=== PATIENT | female | born 1960 | race Caucasian/White ===

== ENCOUNTER → 2018-10-12 | Outpatient (CLI) | payer OTHER ==
--- NOTE | 2018-10-12 12:37 | ECHOF ---
Referral Reason:I51.7 Cardiomegaly MEASUREMENTS -------- HEIGHT: 175.3 cm WEIGHT: 93.4 kg BP: RVIDd: 3.7 cm (< 3.3) IVSd: 1.2 cm (0.6 - 1.1) LVIDd: 4.8 cm (3.9 - 5.3) LVPWd: 1.3 cm (0.6 - 1.1) IVSs: 1.4 cm LVIDs: 3.9 cm LVPWs: 1.3 cm LA Diam: 4.1 cm (2.7 - 3.8) LAESV Index (A-L): 31.08 ml/m Ao Diam: 2.9 cm (2.0 - 3.7) AV Cusp: 1.9 cm (1.5 - 2.6) LA Diam: 4.0 cm (2.7 - 3.8) MV EXCURSION: 19.783 mm (> 18.000) MV EF SLOPE: 150 mm/s (70 - 150) EPSS: 0.5 cm MV E Rancho: 0.93 m/s MV DecT: 162 ms MV A Rancho: 0.65 m/s MV E/A Ratio: 1.42 RAP: 5.00 mmHg RVSP: 21.66 mmHg FINDINGS -------- Sinus rhythm. This was a technically adequate study. The left ventricular size is normal. There is mild concentric left ventricular hypertrophy. Overa ll left ventricular systolic function is normal with, an EF between 55 - 60 %. The right ventricle is mildly enlarged. The left atrium is mildly dilated. LA is midly dilated 29-33ml/m2. The right atrial size is normal. The aortic valve is trileaflet, and appears structurally normal. No aortic stenosis or regurgitation. Mild mitral annular calcification present. Mild mitral regurgitation is present. Mild tricuspid regurgitation present. There is no evidence of pulmonary hypertension. The right v entricular systolic pressure, as measured by Doppler, is 21.66mmHg. There is no pulmonic regurgitation present. The aortic root size is normal. There is no pericardial effusion. CONCLUSIONS -------- 1. The left ventricular size is normal. 2. There is mild concentric left ventricular hypertrophy. 3. Overall left ventricular systolic function is normal with, an EF between 55 - 60 %. 4. The right ventricle is mildly enlarged. 5. The left atrium is mildly dilated. 6. LA is midly dilated 29-33ml/m2. 7. The right atrial size is normal. 8. The aortic valve is trileaflet, and appears structurally normal. No aortic stenosis or regurgitati on. 9. Mild mitral annular calcification present. 10. Mild mitral regurgitation is present. 11. Mild tricuspid regurgitation present. 12. There is no evidence of pulmonary hypertension. 13. The right ventricular systolic pressure, as measured by Doppler, is 21.66mmHg. 14. There is no pulmonic regurgitation present. 15. The aortic root size is normal. 16. There is no pericardial effusion. SEWING MACHINE MECHANIC: Cecile Benitez RDCS
== END | disposition home or self-care (01) ==
LOC: RADECHMAIN 08:32
PROVIDERS: ATTEND Family Medicine
DX: I08.1 Rheumatic disorders of both mitral and tricuspid valves (principal)
CPT/HCPCS: 93306

== ENCOUNTER → 2019-03-01 | Outpatient (CLI) | payer OTHER ==
--- NOTE | 2019-03-01 13:13 | BD ---
EXAMINATION TYPE: Axial Bone Density DATE OF EXAM: 03/01/2019 COMPARISON: NONE CLINICAL HISTORY: 58 YR OLD FEMALE....ICD-10 CODE: E83.51 HYPOCALCEMIA Height: 66.5 Weight: 202 FRAX RISK QUESTIONS: Family History (Parent hip fracture): YES RISK FACTORS HISTORY OF: NOSE FX ....UNDER AGE 52 YRS OLD Family History of Osteoporosis: YES, MOTHER AND GRANDMOTHER, WITH HIP FX Postmenopausal woman: YES, AT AGE 50 YRS OLD Lost more than 2 inches in height since high school: YES Frequent falls: WEARS BRACE ON RT ANKLE, MEDICATIONS: Prednisone or other steroids: PREDNISONE, JUST FINISHING LAST PILL TO DAY Additional Medications: BP MEDS, REFLUX MEDS, CALCIUM, MAGNESIUM Additional History:HYPERTENSION, REFLUX, LOW CALCIUM AND MAGNESIUM IN BLOOD, OSTEOARTHRITIS EXAM MEASUREMENTS: Bone mineral densitometry was performed using the Singly System. Bone mineral density as measured about the Lumbar spine is: ----- L1-L4(G/cm2): 1.428 T Score Values are as follows: ----- L1: 2.2 ----- L2: 2.9 ----- L3: 1.3 ----- L4: 1.9 ----- L1-L4: 2.1 Bone mineral density FIRST DEXA SCAN.....BASELINE STUDY Bone mineral density about the R hip (g/cm2): 1.179 Bone mineral density about the L hip (g/cm2): 1.231 T Score values are as follows: -----R Neck: 0.3 -----L Neck: 0.3 -----R Total: 1.4 -----L Total: 1.8 Bone mineral density BASELINE STUDY FRAX%s: THERE IS A 10.4% CHANCE FOR A MAJOR AMANDA POROTIC FX AND 0.1% FOR HIP.....PROBABILITY OF F X IN 10 YRS TIME IMPRESSION: No evidence for osteoporosis or osteopenia. NOTE: T-SCORE=SD OF THE YOUNG ADULT MEAN.
== END ==
LOC: RADBDWWP 08:48
PROVIDERS: ATTEND Family Medicine
DX: E83.51 Hypocalcemia (principal)
CPT/HCPCS: 77080

== ENCOUNTER 2019-07-20 11:34 | Day surgery (SDC) | payer OTHER ==
[2019-07-19 08:40] VITALS: BMI 31.4
[~2019-07-20 11:34] MED LIST: LACTATED RINGERS 1,000 ML IV SCH; LIDOCAINE 1% 20 ML VIAL (10MG/ML) FOR IV START INTRADERMA PRN
[2019-07-20 11:58] VITALS: RESP 16; TEMP 98
[2019-07-20] MEDS ORDERED: PROPOFOL 10 MG/ML 20 ML VIAL IV ONE (12:36)
[2019-07-20] MEDS ORDERED: LIDOCAINE 1% INJ 10MG/ML (20 ML MDV) ONE (12:36)
[2019-07-20 13:43] VITALS: BP 151/70; PULSE 78
--- NOTE | 2019-07-20 13:53 | P.PCN ---
Date of Procedure: 07/20/19 Description of Procedure: BRIEF HISTORY: Patient is a 59-year-old pleasant female scheduled for an elective colonoscopy as a part of hematochezia and anemia. The patient reports last colonoscopy 18 years ago. PROCEDURE PERFORMED: Colonoscopy. PREOPERATIVE DIAGNOSIS: Hematochezia, anemia. ESTIMATED BLOOD LOSS: Minimal. IV sedation per Anesthesia. PROCEDURE: After informed consent was obtained, the patient, was brought into the endoscopy unit. IV sedation was administered by Anesthesia under continuous monitoring. Digital rectal examination was normal. Initially the Olympus CF-190 flexible video colonoscope was then inserted in the rectum, gradually advanced into the cecum without any difficulty. Careful examination was performed as the scope was gradually being withdrawn. Ileocecal valve and the appendiceal orifice were visualized and appeared normal. Prep was excellent. Mucosa of the cecum, ascending colon, transverse colon, descending colon, sigmoid colon, and rectum appeared grossly normal. There were numerous small and large diverticula throughout the colon as well as being fairly fixed likely secondary to multiple prior surgeries Retroflexion was performed in the rectum and no lesions were seen, mild internal hemorrhoids were also noted. The patient tolerated the procedure well. IMPRESSION: Moderate pandiverticulosis. No masses, polyps or other pathology to explain patient's anemia. RECOMMENDATIONS: Findings of this examination were discussed with the patient and her . Okay to resume high-fiber diet. Okay to resume medications. Repeat colonoscopy in 10 years for screening.
== END 2019-07-20 14:03 | disposition home or self-care (01) ==
LOC: ORWHC2ENDO 11:34
PROVIDERS: ATTEND Internal Medicine
DX: K57.30 Diverticulosis of large intestine without perforation or abscess without bleeding (principal); K64.8 Other hemorrhoids; K21.9 Gastro-esophageal reflux disease without esophagitis; D64.9 Anemia, unspecified; I10 Essential (primary) hypertension; Z90.710 Acquired absence of both cervix and uterus; Z79.899 Other long term (current) drug therapy; Z91.030 Bee allergy status
CPT/HCPCS: 45378; J2001; J2704

== ENCOUNTER 2019-08-26 09:38 | Day surgery (SDC) | payer OTHER ==
[~2019-08-26 09:38] MED LIST changes: +DEXAMETHASONE SOD PHOSPHATE 10 MG/ML 1 ML VIAL IV ONE; -LACTATED RINGERS 1,000 ML IV SCH; -LIDOCAINE 1% 20 ML VIAL (10MG/ML) FOR IV START INTRADERMA PRN; +MIDAZOLAM 2 MG/2 ML VIAL IV PRN; +ONDANSETRON 4 MG/2 ML VIAL IVP ONE
[2019-08-26] MEDS ORDERED: LIDOCAINE 1% 20 ML VIAL (10MG/ML) FOR IV START INTRADERMA ONE (10:45)
[2019-08-26] MEDS: LACTATED RINGERS 1,000 ML IV SCH ×2 (10:45→17:11)
[2019-08-26] MEDS ORDERED: MIDAZOLAM 2 MG/2 ML VIAL IV ONE (11:23)
[2019-08-26] MEDS ORDERED: HYDROmorphone (PF) 1 MG/ML ONE (12:44)
[2019-08-26] MEDS ORDERED: MIDAZOLAM 2 MG/2 ML VIAL ONE (12:44)
[2019-08-26] MEDS ORDERED: KETAMINE 10 MG/ML 20 ML VIAL ONE (12:44)
[2019-08-26] MEDS ORDERED: LIDOCAINE 1% INJ 10MG/ML (20 ML MDV) ONE (12:44)
[2019-08-26] MEDS ORDERED: SUCCINYLCHOLINE CHLORIDE 100 MG/5 ML SYR IV ONE (12:44)
[2019-08-26] MEDS ORDERED: PROPOFOL 10 MG/ML 20 ML VIAL IV ONE (12:44)
[2019-08-26] MEDS ORDERED: ROPIVACAINE 5 MG/ML 30 ML VIAL ONE (12:44)
[2019-08-26] MEDS ORDERED: DEXAMETHASONE SOD PHOSPHATE 4 MG/ML 1 ML VIAL ONE (12:44)
[2019-08-26] MEDS ORDERED: ePHEDrine SULFATE/0.9% NACL/PF 50 MG/5 ML SYRINGE IV ONE (12:44)
[2019-08-26] MEDS ORDERED: fentaNYL (PF) 50 MCG/ML 2 ML AMP ONE (12:44)
[2019-08-26] MEDS ORDERED: LACTATED RINGERS 1,000 ML IV ONE (13:56)
[2019-08-26] MEDS ORDERED: hydrOXYzine PAMOATE 25 MG CAP PO PRN (16:01)
[2019-08-26] MEDS ORDERED: SENNOSIDES-DOCUSATE SODIUM 1 EACH TAB PO PRN (16:01)
[2019-08-26] MEDS ORDERED: HYDROcodone/APAP 5-325MG 1 EACH TAB PO PRN ×2 (16:01)
[2019-08-26] MEDS ORDERED: ONDANSETRON 4 MG/2 ML VIAL IVP PRN (16:01)
[2019-08-26] MEDS ORDERED: HYDROmorphone 0.5 MG/0.5 ML SYRINGE IVP PRN ×2 (16:01)
--- NOTE | 2019-08-26 16:01 | P.OP ---
Date of Procedure: 08/26/19 Preoperative Diagnosis: 1. 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 Right posterior tibial tendinitis 3. Right Achilles tendon contracture Postoperative Diagnosis: Same Procedure(s) Performed: 1. Right subtalar arthrodesis 2. Right talonavicular arthrodesis 3. Right percutaneous tendo Achilles lengthening 4. Right posterior tibial tendon debridement 5. Application of short leg splint by physician, right leg Anesthesia: PATRICIA, regional Surgeon: Mike Walter Organization Development Consultant #1: Max Snyder Estimated Blood Loss (ml): 25 IV fluids (ml): 1,200 Pathology: none sent Condition: stable Disposition: PACU Indications for Procedure: The patient is a very pleasant 59-year-old female with long-standing history of problems with her right foot. She previously underwent some type of debridement procedure on her right posterior tibial tendon by an outside physician. She had continued pain and worsening deformity of her foot. She came to discuss treatment with me in the office. She failed a long course of nonsurgical treatment with activity modification, orthotics, bracing, and anti- inflammatories. Worsening pain is refractory to nonsurgical treatment and requested Aliciarich. Her x-rays showed collapse of longitudinal arch and greater than 40% uncoverage of the talar head. She had severe tenderness and weakness with posterior tibial tendon function. We discussed different surgical options including joint sparing procedures and fusions. My recommendation was to perform a double arthrodesis both to correct her deformity and have the lowest rate of recurrence. We discussed potential risks and complications including but not limited to risk of anesthesia, superficial infection, deep infection, delayed wound healing, superficial wound necrosis, nonunion of the fusion sites, malunion the fusion sites, symptomatically hardware, overcorrection of the deformity, under correction of the deformity, recurrence, DVT, PE, other medical complications, need for further surgery, possibility of revision surgery, generalized to satisfaction with her surgical outcome, and possibly loss of life or limb. Patient voiced understanding these potential complications and provided her verbal and written consent to go forward with surgery. Description of Procedure: The patient is a benefit. A Carbajal and the correct right leg was marked with my initials. I reviewed the consent form with the patient and her . All their questions were answered. The patient was given a block by anesthesia. She was then brought back to the operating room. She was positioned on the OR table where general anesthetic and preoperative antibiotics were given. A tourniquet was applied proximal aspect of the right leg. The right leg was then prepped and draped in the standard sterile fashion. Prior to starting surgery timeout was performed identifying the correct patient operative extremity and procedure. The patient's leg was then elevated, exsanguinated with an Esmarch bandage, and the tourniquet was inflated to 250 mmHg. I began by performing a percutaneous tendo Achilles lengthening. Stab incisions were made a 2 cm increments starting 2 cm proximal to the posterior tuberosity of the calcaneus. 3 stab incisions were made. The medial 50% of the Achilles tendon was released through the distal and proximal incisions in the lateral 50% of the Achilles tendon was released in the middle incision. A gentle dorsiflexion was applied to the ankle there is a palpable and audible pop as the Achilles lengthening. It remained intact. Attention was then turned to the subtalar joint. A longitudinal incision was made starting at the tip of the lateral malleolus and extending toward the fourth metatarsal. Dissection was carried down through copious tissue with tenotomy scissors. The peroneal tendon sheath was incised and the tendons were retracted plantarly. The posterior and middle facets of the subtalar joint were exposed. Articular cartilage was removed using a combination of osteotomes and curettes. The wound was thoroughly irrigated. All the articular cartilage is removed down to subchondral bone. A 2.5 mm drill bit was used to thoroughly fenestrate the exposed subchondral bone to facilitate fusion. Attention was then turned to the dorsal foot. A longitudinal incision was made centered over the talonavicular joint. Dissection was carried down carefully the 17th tissue with tenotomy scissors. The capsule the talonavicular joint was opened. A distractor was placed with pins and the talar head and navicular body. Articular cartilage was carefully removed from the talar head and the navicular. The wound was thoroughly irrigated removing all loose pieces of cartilage. The exposed bone of the talar head and navicular were thoroughly fenestrated with a 2.0 mm drill bit. The subtalar joint was then reduced and K wires were placed in the plantar aspect of the heel, across the subtalar joint, and into the talar body. Partially threaded 7.0 mm screws were placed generating excellent compression across the posterior and middle facets of the subtalar joint. The talonavicular joint was then reduced and a guidewire was placed through the navicular tuberosity up into the talar body. A partially threaded cannulated 5.5 mm screw was placed. A second partially threaded cannulated 40 screw was placed across lateral aspect of the joint. Final fluoroscopic images were taken including an AP view of the foot which showed intact Annette's line and coverage of the talar head, and mortise view of the ankle which showed both subtalar screws within the talus and no violation of the ankle joint, and axial heel view which showed both subtalar screws completely within the calcaneus, and a lateral of the foot which showed adequate compression across the subtalar and talonavicular joints and episcopalian of Annette's line. At this point the scar over the posterior medial ankle was incised. Dissection was carried down to the posterior tibial tendon. There were multiple nonabsorbable sutures consistent with prior attempts at repair. The tendon was markedly thickened and degenerative appearing with "crabmeat" appearing tissue throughout the substance of the tendon. Since both the subtalar and talonavicular joints were secured the degenerative portion of the tendon was sharply debrided with a scalpel. All wounds were thoroughly irrigated and closed in layers. Sterile dressing consisting of Betadine soaked Adaptic, 4 x 4, and web rolls applied. The patient was then placed into a well-padded bulky Bowamn splint with the ankle in neutral. The patient was awoken from her anesthetic, transferred to a gurney, and brought to recovery having procedure well. Max chuy PAC was required as a skilled employment assistant for patient positioning, exposure, retraction, closure of wounds and application of splint. Plan: The patient is going to be admitted overnight for pain control, IV antibiotics, and internal medicine consultation. She was to remain strictly nonweightbearing on her operative extremity. She is to ice and elevate her leg. She'll be treated with Lovenox for DVT prophylaxis while in-house and can be discharged home on aspirin.
[2019-08-26] MEDS: HYDROmorphone 0.5 MG/0.5 ML SYRINGE IVP PRN ×2 (16:05→16:12)
[2019-08-26] MEDS ORDERED: NALOXONE 0.4 MG/ML 1 ML VIAL IV PRN (16:09)
[2019-08-26] MEDS ORDERED: diphenhydrAMINE 50 MG/ML 1 ML VIAL IVP ONE (16:20)
--- NOTE | 2019-08-26 16:31 | FL ---
Fluoroscopy History: OSTEOARTHRITIS FOOT AND ANKLE 4 MIN 59 SEC FL
[2019-08-26 17:09] VITALS: BMI 31.3
--- NOTE | 2019-08-26 17:52 | XR ---
EXAMINATION TYPE: XR ankle limited RT DATE OF EXAM: 08/26/2019 CLINICAL HISTORY: Fusion surgery TECHNIQUE: 6 fluoroscopic images of the right ankle COMPARISON: None. FINDINGS: A series of fluoroscopic images show placement of 4 screws fusing the subtalar joint and th e talonavicular joint in anatomic position. IMPRESSION: Hindfoot fusion surgery. No complicating process seen. There is total recorded fluoroscopy time of 4 minutes and 59 seconds.
[2019-08-26] MEDS: HYDROmorphone 1 MG/ML 1 ML SYRINGE IVP PRN ×2 (18:16→21:29)
[2019-08-26] MEDS ORDERED: NON FORMULARY DRUG (Potassium [Potassium] 99 MG) PO SCH (18:30)
[2019-08-26 18:37] LABS: Basophils % (A) 0 %; Eosinophils % (A) 0 %; HCT 35.3 % (34.0-46.0); HGB 11.7 gm/dL (11.4-16.0); Lymphocytes # (A) 0.3 k/uL (1.0-4.8); Lymphocytes % (A) 4 %; MCH 34.7 pg (25.0-35.0); MCHC 33.1 g/dL (31.0-37.0); MCV 104.7 fL (80.0-100.0); Macrocytosis Slight; Mean Platelet Volume 6.2; Monocytes # (A) 0.1 k/uL (0-1.0); Monocytes % (A) 1 %; Neutrophils # (A) 7.3 k/uL (1.3-7.7); Neutrophils % (A) 94 %; Platelet Count 130 k/uL (150-450); RBC 3.37 m/uL (3.80-5.40); WBC 7.8 k/uL (3.8-10.6)
[2019-08-26] MEDS: LOSARTAN 50 MG TAB PO SCH (21:27)
[2019-08-26] MEDS: PANTOPRAZOLE 40 MG TABLET PO SCH (21:28)
[2019-08-26] MEDS: MAGNESIUM OXIDE 400 MG TAB PO SCH (21:28)
[2019-08-26] MEDS: CALCIUM CARBONATE 500 MG CHEWABLE PO SCH (21:29)
--- NOTE | 2019-08-26 22:52 | CONS ---
CONSULTATION CHIEF COMPLAINT: Arthritis of the right foot. HISTORY OF PRESENT ILLNESS: This 59-year-old white female is admitted for an elective surgical intervention for her arthritis in the right foot. She has been fairly healthy with mild hypertension and GERD. REVIEW OF SYSTEMS: She has had no difficulty with headaches, CVAs, neurologic problems, etc. She is having a lot of irritation in the left eye right now and feels like she has a foreign body in the right eye which she felt when she was coming out of recovery. She has no diplopia. She has no blurred vision. She has had no chest pain, shortness of breath, cough, heart disease, orthopnea, PND, chest pain, palpitations, rheumatic fever, abdominal pain, nausea, vomiting, hematemesis, melena, hematochezia, jaundice, hepatitis, cirrhosis, hematuria frequency, urgency, arthralgias, diabetes, etc. Past medical history, family history and personal and social histories are essentially otherwise unremarkable. ALLERGIES: None. MEDICATIONS INCLUDE: Vitamin D, calcium, losartan 100 mg once a day, magnesium oxide 500 mg twice a day, omeprazole 20 mg once a day and potassium 99 mg once a day. PHYSICAL EXAM: Her blood pressure is 153/67, pulse 85, respirations 12, and she is afebrile. GENERAL: She appeared to be well developed, well nourished, no acute distress. Skin color is normal. Skin is warm, dry. Lymph nodes not enlarged. Head, ears, eyes, nose, mouth, and throat were normal. Neck veins not distended. Chest is clear. Cardiac exam demonstrated normal sinus rhythm with a very faint grade 1/6 systolic murmur heard at the left lower sternal border. There is no S3 and no S4. Abdomen is soft, nontender. Extremities are normal except for the dressing on the right foot and lower leg. Neurologically, she is intact. She did have some irritation of the conjunctivae in the left eye with slight ecchymosis. IMPRESSION: 1. Osteoarthritis of the right foot. 2. Mild essential hypertension. 3. Inconsequential cardiac murmur. 4. Irritation in the left eye and possible foreign body. RECOMMENDATIONS: None at this time. I will ask Ophthalmology to see her if the eye continues to bother her. MMODL / IJN: [id number] /
[2019-08-27] MEDS: LACTATED RINGERS 1,000 ML IV SCH ×2 (05:56→05:57)
[2019-08-27 06:31] VITALS: RESP 12
--- NOTE | 2019-08-27 07:36 | P.ANPRN ---
Procedure Note - Anesthesia - Nerve Block Performed Right Popliteal Single Time Out Performed: Yes Date of Procedure: 08/26/19 Procedure Start Time: 11:24 Procedure Stop Time: :29 Location of Patient Procedure: PACU Indication: Acute Post-Operative Pain, Requested by Surgeon Sedation Type: Sedate with meaningful contact maintained Preparation: Sterile Prep Position: Supine Needle Types: Pajunk Needle Gauge: 21 Ultrasound used to visualize needle placement: Yes Ultrasound used to observe medication spread: Yes Blood Aspirated: No Pain Paresthesia on Injection Noted: No Resistance on Injection: Normal Image Stored and Saved: Yes Events: Uneventful and Well Tolerated (ropi .5% 30 cc plus dexamethasone 4mg)
[2019-08-27] MEDS: PANTOPRAZOLE 40 MG TABLET PO SCH (07:46)
[2019-08-27] MEDS: LOSARTAN 50 MG TAB PO SCH (07:46)
[2019-08-27] MEDS: CALCIUM CARBONATE 500 MG CHEWABLE PO SCH (07:47)
[2019-08-27] MEDS: MAGNESIUM OXIDE 400 MG TAB PO SCH (07:47)
[2019-08-27] MEDS ORDERED: ENOXAPARIN 40 MG/0.4 ML SYRINGE SQ SCH (09:00)
[2019-08-27] MEDS ORDERED: MULTIVITAMINS, THERA 1 EACH TAB PO SCH (12:00)
[2019-08-27] MEDS ORDERED: HYDROcodone/APAP 7.5-325MG 1 EACH TAB PO PRN (13:14)
--- NOTE | 2019-08-27 13:22 | P.DS ---
Providers Expected date of discharge: 08/27/19 Attending physician: Mike Walter Consults: 08/26/19 16:08 Consult Physician Routine Consulting Provider: Conrado Beal Consult Reason/Comments: Medical management Do you want consulting provider notified?: Yes Primary care physician: Stated None Hospital Course: This is a 59-year-old female who is admitted to [facility] following elective surgery on 08/26/19. The patient has had long-standing issues with her right foot. She was followed in the office by Dr. Walter for adult acquired flatfoot deformity, and after exhausting nonsurgical treatment, the patient requested surgery. The patient underwent a right subtalar joint arthrodesis, talonavicular joint arthrodesis, percutaneous tendo Achilles lengthening, posterior tibial tendon debridement on 08/26/[address] Walter. The procedure was performed without complication or sequelae. The patient is doing fairly well postoperatively. Vital signs and labs are stable on postoperative day #1. Patient was examined bedside today. Patient states her pain is currently well controlled. She states she is feeling well this morning. She tolerated her breakfast well. She has been up to the bathroom with the use of a knee scooter, with minimal issues transferring. She has been remaining nonweightbearing on the operative leg. She states she would like to return home on discharge, she states she will receive help from her . She denies chest pain, shortness of breath, nausea, vomiting, fevers, chills. She denies any new complaints today. Vital signs stable. On examination, the patient is sitting up in bed in no apparent distress. She is alert and oriented 3. On inspection of the right lower extremity, there is a bulky Bowman splint in place. The splint is clean, dry, and intact. There is a small amount of blood on the medial aspect of the splint. The right toes are warm and well perfused with brisk capillary refill. Motor and sensory function are intact with the right foot. Vital signs stable. Patient is discharged home in good condition. Patient will follow-up with Dr. Walter in the office in 2 weeks. Please see med rec for accurate list of discharge medication Patient Condition at Discharge: Fair Plan - Discharge Summary Discharge Rx Participant: Yes New Discharge Prescriptions: New Aspirin 325 mg PO DAILY #14 tab Docusate [Colace] 100 mg PO BID #60 capsule Hydrocodone/Acetaminophen [Wilson 5-325] 1 tab PO Q4-6H PRN #40 tab PRN Reason: Pain Ergocalciferol [Vitamin D2] 50,000 unit PO Q72H #14 cap Cholecalciferol (Vitamin D3) [Vitamin D3] 2,000 unit PO DAILY #30 capsule No Action Losartan Potassium [Cozaar] 100 mg PO QAM Multivitamins, Thera [Multivitamin (formulary)] 1 each PO DAILY@1200 #30 tab Ergocalciferol [Vitamin D2] 50,000 unit PO SA Potassium 99 mg PO DAILY Magnesium Oxide [Mag-Ox] 500 mg PO BID Calcium Carbonate [Tums] 500 mg PO DAILY Omeprazole Magnesium [PriLOSEC OTC] 20 mg PO DAILY Discharge Medication List Losartan Potassium [Cozaar] 100 mg PO QAM 01/22/19 [History] Multivitamins, Thera [Multivitamin (formulary)] 1 each PO DAILY@1200 #30 tab 01/23/19 [Rx] Calcium Carbonate [Tums] 500 mg PO DAILY 07/19/19 [History] Ergocalciferol [Vitamin D2] 50,000 unit PO SA 07/19/19 [History] Magnesium Oxide [Mag-Ox] 500 mg PO BID 07/19/19 [History] Omeprazole Magnesium [PriLOSEC OTC] 20 mg PO DAILY 07/19/19 [History] Potassium 99 mg PO DAILY 07/19/19 [History] Aspirin 325 mg PO DAILY #14 tab 08/27/19 [Rx] Cholecalciferol (Vitamin D3) [Vitamin D3] 2,000 unit PO DAILY #30 capsule 08/27/19 [Rx] Docusate [Colace] 100 mg PO BID #60 capsule 08/27/19 [Rx] Ergocalciferol [Vitamin D2] 50,000 unit PO Q72H #14 cap 08/27/19 [Rx] Hydrocodone/Acetaminophen [Wilson 5-325] 1 tab PO Q4-6H PRN #40 tab 08/27/19 [Rx] Follow up Appointment(s)/Referral(s): Mike Walter MD [Medical Doctor] - 2 Weeks Activity/Diet/Wound Care/Special Instructions: -Strict non-weight bearing on your operative leg. Do not remove your splint; Keep splint clean, dry, and intact -Use crutches, knee scooter, or a walker to ambulate after surgery. -Elevate and ice operative leg to help reduce swelling and control pain. -Take pain medications as prescribed. Take Colace as a stool softener. Take aspirin as prescribed for blood clot prevention. -Follow-up appointment with Dr. Walter in the office in 2 weeks. -Call the office with any questions or concerns, Discharge Disposition: HOME SELF-CARE
[2019-08-27 13:58] VITALS: BP 125/80; PULSE 84; TEMP 98.4
--- NOTE | 2019-08-27 20:11 | PN ---
PROGRESS NOTE CHIEF COMPLAINT: Arthritis of the right ankle and foot. HISTORY OF PRESENT ILLNESS: This lady has been stable during the night and will probably go home today. PHYSICAL EXAMINATION: Chest is clear. Cardiac exam is normal. Abdomen is soft, nontender. IMPRESSION: Status post procedure on right ankle and right foot for arthritis. PLAN: Probably home today. MMODL / IJN: [id number] /
== END 2019-08-27 16:48 | disposition home or self-care (01) ==
LOC: OR 09:38 → 4SSUR 16:48 → OR 08-27 16:48
PROVIDERS: ATTEND Orthopaedic Surgery
DX: M21.41 Flat foot [pes planus] (acquired), right foot (principal); M76.821 Posterior tibial tendinitis, right leg; M67.01 Short Achilles tendon (acquired), right ankle; I10 Essential (primary) hypertension; J44.9 Chronic obstructive pulmonary disease, unspecified; M19.071 Primary osteoarthritis, right ankle and foot; Z86.73 Personal history of transient ischemic attack (TIA), and cerebral infarction without residual deficits; Z90.710 Acquired absence of both cervix and uterus; Z87.891 Personal history of nicotine dependence; R51 Headache; Z79.899 Other long term (current) drug therapy; Z91.030 Bee allergy status
CPT/HCPCS: 97161; 64445; 76942; 85025; 82306; 73600; 28725; 28740; C1713; J2250; J1200; J1100 ×2; J0690 ×2; J2405; J2001; J1650; J3010; J1170 ×2; J2795; J0330; J2704

== ENCOUNTER → 2019-12-09 | Outpatient (CLI) | payer OTHER ==
[2019-12-09 12:21] LABS: HCT 38.2 % (34.0-46.0); HGB 13.1 gm/dL (11.4-16.0); MCHC 34.2 g/dL (31.0-37.0); MCV 96.5 fL (80.0-100.0); Platelet Count 206 k/uL (150-450); RBC 3.96 m/uL (3.80-5.40); RDW 13.6 % (11.5-15.5); WBC 7.7 k/uL (3.8-10.6)
[2019-12-09 18:37] LABS: African American GFR (CKD) 82.3 (60.0-200.0); Anion Gap 12.1 mmol/L (4.00-12.00); BUN/Creat Ratio 18.89 Ratio (12.00-20.00); Calcium 9.6 mg/dL (8.7-10.3); Carbon Dioxide 26.9 mmol/L (21.6-31.8); Magnesium 2.3 mg/dL (1.5-2.4); Potassium 4.1 mmol/L (3.5-5.5)
[2019-12-09 18:45] LABS: T4, Free (Free Thyroxine) 1.3 ng/dL (0.80-1.80)
== END | disposition home or self-care (01) ==
LOC: LABWHC1 11:09
PROVIDERS: ATTEND Nurse Practitioner
DX: I10 Essential (primary) hypertension (principal)
CPT/HCPCS: 36415; 80048; 82306; 83735; 84439; 84443; 85027

== ENCOUNTER → 2020-01-31 | Outpatient (CLI) | payer OTHER ==
[2020-01-31 15:41] LABS: African American GFR (CKD) 82.3 (60.0-200.0); Anion Gap 14.4 mmol/L (4.00-12.00); BUN/Creat Ratio 15.56 Ratio (12.00-20.00); Calcium 10.2 mg/dL (8.7-10.3); Carbon Dioxide 25.6 mmol/L (21.6-31.8); Magnesium 1.7 mg/dL (1.5-2.4); Potassium 4.6 mmol/L (3.5-5.5)
[2020-01-31 16:01] LABS: Folate, Serum 21.8 ng/mL
== END | disposition home or self-care (01) ==
LOC: LABWHC1 11:22
PROVIDERS: ATTEND Nurse Practitioner
DX: E44.0 Moderate protein-calorie malnutrition (principal); E61.2 Magnesium deficiency; R79.89 Other specified abnormal findings of blood chemistry
CPT/HCPCS: 36415; 80048; 82306; 82607; 82746; 83735

== ENCOUNTER → 2022-10-15 | Outpatient (CLI) | payer BC, OTHER ==
--- NOTE | 2022-10-15 14:55 | MM ---
Reason for Exam: Clinical finding. Indicated Problems: Pain of the left side (Global) for 3 Month(s) : pain lt breast off and on [address] loco. Patient History: Menarche at age 14. Patient has no children. Hysterectomy at age 51. Risk Values: Bina 5 year model risk: 1.6%. NCI Lifetime model risk: 8.1%. Tissue Density: There are scattered fibroglandular densities. Findings: Analyzed By CAD. No suspicious masses or worrisome cluster microcalcifications within either breast. No significant change in prior examination. Patient reports entire left breast pain. Overall Assessment: Incomplete: need additional imaging evaluation, BI-RAD 0 Management: Diagnostic Breast Ultrasound of the left breast. A clinical breast exam by your physician is recommended on an annual basis and results should be correlated with mammographic findings. This exam should not preclude additional follow-up of suspicious palpable abnormalities. Results were given to the patient verbally at the time of exam. Electronically signed and approved by: Harshil Ibrahim D.O.
--- NOTE | 2022-10-15 15:24 | USB ---
Reason for Exam: Clinical finding. Patient History: Menarche at age 14. Patient has no children. Hysterectomy at age 51. Risk Values: Bina 5 year model risk: 1.6%. NCI Lifetime model risk: 8.1%. Technique: Method: Whole Breast Handheld. Findings: The whole breast of the left breast, the axilla of the left breast and the retroareolar of the left breast were scanned. A complete US of all four quadrants of the breast and axilla, retro-areolar region were reviewed. There is a hypoechoic irregular mass that is demonstrated in the left breast at 2:00 8 cm from the nipple measuring 0.7 x 0.5 x 0.8 cm. No internal vascularity identified. There is posterior acoustic shadowing with angular margins and antiparallel orientation. No axillary adenopathy demonstrated. Overall Assessment: Suspicious, BI-RAD 4 Management: Ultrasound Core Biopsy of the left breast. A clinical breast exam by your physician is recommended on an annual basis and results should be correlated with mammographic findings. This exam should not preclude additional follow-up of suspicious palpable abnormalities. Results were given to the patient verbally at the time of exam. Electronically signed and approved by: Harshil Ibrahim D.O.
== END | disposition home or self-care (01) ==
LOC: RADMAMWWP 14:15
PROVIDERS: ATTEND Internal Medicine
DX: N64.4 Mastodynia (principal)
CPT/HCPCS: 77062; 77066

== ENCOUNTER → 2022-10-23 | Day surgery (SDC) | payer BC, OTHER ==
--- NOTE | 2022-10-23 12:26 | MM ---
Reason for Exam: Post Procedure Mammogram. Last screening mammogram was performed less than 1 month ago. Patient History: Menarche at age 14. Patient has no children. Hysterectomy at age 51. Risk Values: Bina 5 year model risk: 1.6%. NCI Lifetime model risk: 8.1%. Tissue Density: Left: There are scattered fibroglandular densities. Overall Assessment: Post procedure mammogram for marker placement Management: Post Mammogram for Angel Placement Electronically signed and approved by: Jorge Luis Vital DO
[2022-10-23 17:47] LABS: Basophils # (A) 0.04 X 10*3/uL (0.00-0.10); Basophils % (A) 0.6 %; Eosinophils # (A) 0.11 X 10*3/uL (0.04-0.35); Eosinophils % (A) 1.7 %; HGB 11.4 g/dL (12.0-15.0); Immature Grans, Automated 0.2 %; Lymphocytes # (A) 0.88 X 10*3/uL (0.90-5.00); Lymphocytes % (A) 13.5 %; MCH 33.1 pg (27.0-32.0); MCHC 31.7 g/dL (32.0-37.0); MCV 104.7 fL (80.0-97.0); Mean Platelet Volume 10.2 fL (9.5-12.2); Monocytes # (A) 0.39 X 10*3/uL (0.20-1.00); NRBC Per 100 WBC 0 /100 WBCS (0.0-0.0); Neutrophils # (A) 5.07 X 10*3/uL (1.80-7.70); Platelet Count 181 X 10*3/uL (140-440); RBC 3.44 X 10*6/uL (4.10-5.20)
[2022-10-23 20:40] LABS: ALT 17 U/L (8-44); AST 20 U/L (13-35); African American GFR (CKD) 53.1 (60.0-200.0); Albumin 4.2 g/dL (3.8-4.9); Albumin/Globulin Ratio 1.57 (1.60-3.17); Alkaline Phosphatase 100 U/L (41-126); Blood Urea Nitrogen 22.6 mg/dL (9.0-27.0); Calcium 9.2 mg/dL (8.7-10.3); Carbon Dioxide 24.9 mmol/L (20.0-27.5); Chloride 100 mmol/L (96-109); Chol/HDL Ratio 3.62 Ratio; Globulin 2.7 g/dL (1.6-3.3); Glucose 99 mg/dL (70-110); LDL Cholesterol,Calculated 139.2 mg/dL (0.0-131.0); Non-African American GFR(CKD) 45.8 (60.0-200.0); Potassium 4.9 mmol/L (3.5-5.5); Sodium 137 mmol/L (135-145); Total Protein 6.8 g/dL (6.2-8.2)
--- NOTE | 2022-10-30 10:20 | USB ---
Risk Values: Bina 5 year model risk: 1.6%. NCI Lifetime model risk: 8.1%. Prior Study Comparison: 10/15/2022 Bilateral MG 3D diag mammo w/cad [facility], [facility]. Pathology Description: Location: 2 o'clock. Cores: 3 Skin Nicks: 1 Gauge: 18 The procedure of ultrasound guided core biopsy was explained to the patient. Benefits, alternatives, and risks were discussed. An informed consent was then obtained. The patient was placed in supine positioning for imaging and for the procedure. The overlying skin was prepped and draped in usual sterile fashion. Lidocaine buffered with used as anesthetic into the skin and subcutaneous tissue up to area of concern in the left breast. A nancy was made with surgical scalpel. Under ultrasound guidance, a 12-gauge vacuum assisted biopsy gun device was used to obtain 3 core samples. Following this, a biopsy clip was left in lesion. The patient tolerated the procedure well without any immediate complication. The patient was kept in the radiology department for short stay after the procedure and then discharged home in stable condition. Postprocedure mammogram: The patient was transferred to mammography for physician ordered post procedure mammogram for clip placement verification. Impression: Successful, uncomplicated ultrasound guided core biopsy of area of concern in the left breast , full pathology results to follow. Pathology Results: Result: Malignant, Tubular carcinoma. LEFT BREAST, TWO O'CLOCK POSITION, ULTRASOUND GUIDED CORE BIOPSY: Invasive tubular carcinoma, Grade 1, with focal microcalcification (see Surgical Pathology Cancer Case Summary and Comment). Overall Assessment: Malignant Management: Surgical Consultation of the left breast. Electronically signed and approved by: Jorge Luis Vital DO
== END ==
LOC: RADUSWWP 10:18
PROVIDERS: ATTEND Surgery
DX: C50.412 Malignant neoplasm of upper-outer quadrant of left female breast (principal); Z90.710 Acquired absence of both cervix and uterus
CPT/HCPCS: 88305; 80061; 80053; 84443; 85025; 88342; 88341; 77065; 19083; A4648

== ENCOUNTER → 2022-10-31 | Outpatient (CLI) | payer BC, OTHER ==
[2022-10-31 11:11] VITALS: BP 146/87; PULSE 85; RESP 17; TEMP 98.9
--- NOTE | 2022-10-31 11:36 | P.GSHP ---
History of Present Illness H&P Date: 10/31/22 Chief Complaint: invasive tubular cancer left breast Dodie is a 62-year-old white female seen in consultation for Dr. Morrison regarding a left breast ultrasound core biopsy performed on 1220 822. The patient had been complaining of left breast pain. She therefore underwent a bilateral mammogram on [id number]. No lesions were seen of concern on the mammogram but secondary to the pain in the left breast and ultrasound was recommended. The ultrasound was performed on the same day. The ultrasound revealed a 0.7 x 0.8 cm irregular mass in the left breast at the 2 o'clock position 8 cm from the nipple. Core biopsy of this area was performed on 1220 822. Pathology revealed an invasive tubular carcinoma grade 1 this was ER/PA positive and HER-2 negative. The Ki-67 proliferative index was low. The patient does not feel any lumps masses or nodules of concern in either breast. She tolerated the biopsy without difficulty. She is not complaining of any nipple discharge or skin changes. She has not had any prior surgery on the breast. She has not had any recent trauma or infection in the breast. Caffeine: occasional nicotine: stopped 4 years ago; used to smoke .5 pack /week for 20 years chocolate: occasional hormones: none BCP: 1 month 30 years ago Family History: father: prostate cancer Hormonal History: menarche: 14 M1, tubal ; breast fed: no menopause: hysterectomy 11 years ago 1 ovary left; done for bleeding Surgical History: 3 knee surgeries hysterectomy 3 foot surgeries tubaligation nose fracture Medical History: neuroapathy unknown origin HTN Social History: Nicotine: Stopped 40 years ago Alcohol: beer twice a week 2 or 3 Marijuana: twice a year - Constitutional Constitutional: Reports sweats, Denies chills, Denies fever - EENT Eyes: denies blurred vision, denies pain Ears: deny: decreased hearing, tinnitus Ears, nose, mouth and throat: Denies headache, Denies sore throat - Breasts Breasts: bilateral: as per HPI - Cardiovascular Cardiovascular: Denies chest pain, Denies shortness of breath - Respiratory Respiratory: Denies cough, Denies 7 - Gastrointestinal Gastrointestinal: Denies abdominal pain, Denies diarrhea, Denies nausea, Denies vomiting - Genitourinary (Female) Genitourinary: Denies dysuria, Denies hematuria - Menstruation Menstruation: Reports post hysterectomy - Musculoskeletal Musculoskeletal: Denies myalgias - Integumentary Integumentary: Denies pruritus, Denies rash - Neurological Neurological: Reports as per HPI, Denies numbness, Denies weakness - Psychiatric Psychiatric: Denies anxiety, Denies depression - Endocrine Endocrine: Denies fatigue, Denies weight change - Hematologic/Lymphatic Comment: none - Allergic/Immunologic Allergic/Immunologic: Reports seasonal allergies Past Medical History Past Medical History: Cancer, GERD/Reflux, Hypertension, Osteoarthritis (OA) Additional Past Medical History / Comment(s): Varicose veins, anemia, hx skin cancer History of Any Multi-Drug Resistant Organisms: None Reported Past Surgical History: Hysterectomy, Orthopedic Surgery, Tonsillectomy Additional Past Surgical History / Comment(s): Bilateral knee arthroscopy(left X1, right X2), torn tendons rt foot, heel spur rt foot, surgery for tubal , nasal surgery for fx nose. Right foot surgery 2018 Past Anesthesia/Blood Transfusion Reactions: No Reported Reaction Additional Past Anesthesia/Blood Transfusion Reaction / Comment(s): . Past Psychological History: No Psychological Hx Reported Smoking Status: Former smoker Past Alcohol Use History: Occasional Additional Past Alcohol Use History / Comment(s): Quit smoking 09/2018, smoked for 25 yrs on and off, "light smoker." Past Drug Use History: None Reported - Past Family History Father Family Medical History: Cancer Brother(s) Family Medical History: AFIB Medications and Allergies Home Medications Medication Instructions Recorded Confirmed Type Losartan Potassium [Cozaar] 100 mg PO DAILY 01/22/19 10/31/22 History Potassium 99 mg PO DAILY 07/19/19 10/31/22 History Cholecalciferol [Vitamin D3 (25 50 mcg PO DAILY 03/15/22 10/31/22 History Mcg = 1000 Iu)] Magnesium Oxide [Moon] 500 mg PO BID 03/15/22 10/31/22 History Ondansetron [Zofran ODT] 4 mg PO Q8HR #12 tab 03/15/22 10/31/22 Rx Vitamin B-12 Complex 1 tab PO DAILY 03/15/22 10/31/22 History Dexlansoprazole [Dexilant] 60 mg PO DAILY PRN 10/31/22 10/31/22 History Allergies Allergy/AdvReac Type Severity Reaction Status Date / Time bee venom protein (honey bee) Allergy Severe Swelling Verified 10/31/22 11:07 Surgical - Exam Vital Signs Temp Pulse Resp BP Pulse Ox 98.9 F 85 17 146/87 99 10/31/22 11:08 10/31/22 11:08 10/31/22 11:08 10/31/22 11:08 10/31/22 11:08 BMI: 29.5 - General moderate distress - Eyes normal ocular movement - ENT no hearing loss - Neck trachea midline - Respiratory normal respiratory effort, clear to auscultation - Cardiovascular Rhythm: regular Heart Sounds: normal: S1 - Abdomen Abdomen: soft, non tender, no guarding, no rigid, no rebound - Integumentary normal turgor - Neurologic no disoriented, no combative - Musculoskeletal normal gait, normal posture - Psychiatric oriented to time, oriented to person, oriented to place, speech is normal, memory intact Breast Exam: BRA: 40DD Inspection: Asymmetry of the nipple location with the right nipple being a grade 2 ptosis of the left nipple being a grade 2/3 ptosis lower than that on the right side; the right breast appears to be slightly larger than the left breast, achymosis related to recent core biopsy Palpation: Right breast: Multi-positional exam fibrocystic changes no discrete dominant masses or nodules of concern Right axilla: No adenopathy of concern Left breast: Ecchymosis related to recent biopsy, multiple positional exam no dominant masses or nodules of concern Left axilla: No adenopathy of concern Results Pathology results reviewed, this is a grade 1 year. 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 Jenkins
== END ==
LOC: WWCWWP 10:51
PROVIDERS: ATTEND Surgery
DX: C50.912 Malignant neoplasm of unspecified site of left female breast (principal); I10 Essential (primary) hypertension; Z91.030 Bee allergy status; Z87.891 Personal history of nicotine dependence

== ENCOUNTER → 2023-01-09 | Outpatient (CLI) | payer BC ==
[2023-01-09 11:38] VITALS: BP 129/76; PULSE 61; RESP 17; TEMP 98.3
--- NOTE | 2023-01-09 12:02 | P.PN ---
Progress Note - Text Progress Note Date: 01/09/23 01-03-23 Dodie is a 62-year-old white female status post left breast lumpectomy and sentinel node biopsy on . 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 All margins were negative although the anterior margin was close. The patient had a sentinel node biopsy which was negative. She noticed some swelling in the left breast and axilla, she had this area aspirated last week. She did well until Friday when she noted tenderness and swelling when she awoke. She came in 12-31-22 for evaluation of this area. The breasts appeared to be doing well but the axillary incision was swollen and was drained for approximately 120 mL of seropurulent fluid. Cultures were sent and showed many PMNs and gram-positive cocci in clusters. She was started on Keflex and the area was opened aspirated and packed. She returns today for evaluation. She is doing well at this time. She is not complaining of any fever or chills. The area of redness has decreased. Cultures presumptive Staph. 01-09-23 The patient is doing well at this time. Her has been changing the packing in the axilla. She had cultures obtained which revealed staph aureus. This is sensitive to cefazolin. It is also sensitive to Bactrim. We are waiting to change her antibiotic to Bactrim. Physical exam: left axilla: Decreased erythema, packing changes and to change packing breast incision clean and dry seroma present today; patient does have some mild erythema of the lower medial portion of her breast Informed consent the area of the seroma was prepped using alcohol. An 18-gauge needle on a 20 mL syringe was used to aspirate the fluid. 220 and cc of straw- colored fluid was aspirated no evidence of infection. The area of the axillary incision was irrigated and the packing was changed. Plan: change antibiotic to Bactrim follow up next week Her is changing packing daily CC: Dr. Jenkins
== END ==
LOC: WWCWWP 11:23
PROVIDERS: ATTEND Surgery
DX: Z85.3 Personal history of malignant neoplasm of breast (principal); Z98.890 Other specified postprocedural states; Z91.02 Food additives allergy status; Z87.891 Personal history of nicotine dependence

== ENCOUNTER → 2023-01-16 | Outpatient (CLI) | payer BC ==
[2023-01-16 09:01] VITALS: BP 127/74; PULSE 114; RESP 18; TEMP 97.9
--- NOTE | 2023-01-16 09:35 | P.PN ---
Progress Note - Text Progress Note Date: 01/16/23 01-03-23 Dodie is a 62-year-old white female status post left breast lumpectomy and sentinel node biopsy on . 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 All margins were negative although the anterior margin was close. The patient had a sentinel node biopsy which was negative. She noticed some swelling in the left breast and axilla, she had this area aspirated last week. She did well until Friday when she noted tenderness and swelling when she awoke. She came in 12-31-22 for evaluation of this area. The breasts appeared to be doing well but the axillary incision was swollen and was drained for approximately 120 mL of seropurulent fluid. Cultures were sent and showed many PMNs and gram-positive cocci in clusters. She was started on Keflex and the area was opened aspirated and packed. She returns today for evaluation. She is doing well at this time. She is not complaining of any fever or chills. The area of redness has decreased. Cultures presumptive Staph. 01-09-23 The patient is doing well at this time. Her has been changing the packing in the axilla. She had cultures obtained which revealed staph aureus. This is sensitive to cefazolin. It is also sensitive to Bactrim. We are waiting to change her antibiotic to Bactrim. Physical exam: left axilla: Decreased erythema, packing changes and to change packing breast incision clean and dry seroma present today; patient does have some mild erythema of the lower medial portion of her breast Informed consent the area of the seroma was prepped using alcohol. An 18-gauge needle on a 20 mL syringe was used to aspirate the fluid. 220 and cc of straw- colored fluid was aspirated no evidence of infection. The area of the axillary incision was irrigated and the packing was changed. 01-16-23 The axillary packing is changed today the depth is still 2.5 cm but the area is very narrow now The area of the breast was examined. There is a small seroma present The area is prepped using alcohol. 90 mL of clear fluid was obtained. There is no evidence of infection Plan: Complete antibiotic follow up next week Her is changing packing daily to continue this The patient will follow up sooner any questions or concerns CC: Dr. Jenkins
== END ==
LOC: WWCWWP 08:51
PROVIDERS: ATTEND Surgery
DX: Z85.3 Personal history of malignant neoplasm of breast (principal); Z91.09 Other allergy status, other than to drugs and biological substances; Z87.891 Personal history of nicotine dependence

== ENCOUNTER → 2023-01-23 | Outpatient (CLI) | payer BC ==
[2023-01-23 09:23] VITALS: BP 130/80; PULSE 105; RESP 18; TEMP 97.8
--- NOTE | 2023-01-23 09:29 | P.PN ---
Progress Note - Text Progress Note Date: 01/23/23 01-03-23 Dodie is a 62-year-old white female status post left breast lumpectomy and sentinel node biopsy on . 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 All margins were negative although the anterior margin was close. The patient had a sentinel node biopsy which was negative. She noticed some swelling in the left breast and axilla, she had this area aspirated last week. She did well until Friday when she noted tenderness and swelling when she awoke. She came in 12-31-22 for evaluation of this area. The breasts appeared to be doing well but the axillary incision was swollen and was drained for approximately 120 mL of seropurulent fluid. Cultures were sent and showed many PMNs and gram-positive cocci in clusters. She was started on Keflex and the area was opened aspirated and packed. She returns today for evaluation. She is doing well at this time. She is not complaining of any fever or chills. The area of redness has decreased. Cultures presumptive Staph. 01-09-23 The patient is doing well at this time. Her has been changing the packing in the axilla. She had cultures obtained which revealed staph aureus. This is sensitive to cefazolin. It is also sensitive to Bactrim. We are waiting to change her antibiotic to Bactrim. Informed consent the area of the seroma was prepped using alcohol. An 18-gauge needle on a 20 mL syringe was used to aspirate the fluid. 220 and cc of straw- colored fluid was aspirated no evidence of infection. The area of the axillary incision was irrigated and the packing was changed. 01-23-23 Patient is doing well at this time. She is not able to pack the axilla any longer as it is completely healed. She has minimal fullness in the left breast. Incisions are clean and dry. Not complaining of any pain. She is complaining of any fever or chills. Physical exam: left axilla: Incision clean and dry. Appears to be completely healed, there is a small amount of serous drainage from a small pore-like opening no evidence of any infection breast incision clean and dry small seroma present today; erythema in the breast is completely resolved Informed consent the area of the seroma was prepped using alcohol. An 18-gauge needle on a 20 mL syringe was used to aspirate the fluid. 30 and cc of serosanguineous fluid was aspirated no evidence of infection. Plan: With medical oncology Appointment radiation oncology Follow-up in 1 month Follow-up sooner any questions or concerns CC: Dr. Jenkins Additional CC's: Ashvin Jenkins
== END ==
LOC: WWCWWP 08:51
PROVIDERS: ATTEND Surgery
DX: C50.412 Malignant neoplasm of upper-outer quadrant of left female breast (principal); Z91.030 Bee allergy status; Z87.891 Personal history of nicotine dependence

== ENCOUNTER → 2023-02-27 | Outpatient (CLI) | payer BC ==
[2023-02-27 08:48] VITALS: BP 129/70; PULSE 100; RESP 17; TEMP 98.1
--- NOTE | 2023-02-27 09:16 | P.PN ---
Subjective Progress Note Date: 02/27/23 Principal diagnosis: left breast stage IA invasive ductal cancer 01-03-23 Dodie is a 62-year-old white female status post left breast lumpectomy and sentinel node biopsy on . 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 All margins were negative although the anterior margin was close. The patient had a sentinel node biopsy which was negative. She noticed some swelling in the left breast and axilla, she had this area aspirated last week. She did well until Friday when she noted tenderness and swelling when she awoke. She came in 12-31-22 for evaluation of this area. The breasts appeared to be doing well but the axillary incision was swollen and was drained for approximately 120 mL of seropurulent fluid. Cultures were sent and showed many PMNs and gram-positive cocci in clusters. She was started on Keflex and the area was opened aspirated and packed. She returns today for evaluation. She is doing well at this time. She is not complaining of any fever or chills. The area of redness has decreased. Cultures presumptive Staph. 01-09-23 The patient is doing well at this time. Her has been changing the packing in the axilla. She had cultures obtained which revealed staph aureus. This is sensitive to cefazolin. It is also sensitive to Bactrim. We are waiting to change her antibiotic to Bactrim. Informed consent the area of the seroma was prepped using alcohol. An 18-gauge needle on a 20 mL syringe was used to aspirate the fluid. 220 and cc of straw- colored fluid was aspirated no evidence of infection. The area of the axillary incision was irrigated and the packing was changed. 01-23-23 Patient is doing well at this time. She is not able to pack the axilla any longer as it is completely healed. She has minimal fullness in the left breast. Incisions are clean and dry. Not complaining of any pain. She is complaining of any fever or chills. Physical exam: left axilla: Incision clean and dry. Appears to be completely healed, there is a small amount of serous drainage from a small pore-like opening no evidence of any infection breast incision clean and dry small seroma present today; erythema in the breast is completely resolved Informed consent the area of the seroma was prepped using alcohol. An 18-gauge needle on a 20 mL syringe was used to aspirate the fluid. 30 and cc of serosanguineous fluid was aspirated no evidence of infection. 02-27-23 Dodie is a 62-year-old white female status post left breast lumpectomy and sentinel node biopsy on . Postprocedure she developed an axillary seroma which was drained several times. She has subsequently been seen by medical onc ology, note from 02-21-23 reviewed. She will start letrazole after radiation therapy. Note radiation oncology reviewed 01-29-23. She started radiation therapy 02-09-23. She is tolerating this without difficulty. She has no complaints at this time. Objective - Vital Signs Vital signs: Vital Signs Temp 98.1 F 02/27/23 08:43 Pulse 100 02/27/23 08:43 Resp 17 02/27/23 08:43 BP 129/70 02/27/23 08:43 Pulse Ox 98 02/27/23 08:43 FiO2 Intake & Output 02/26/23 02/27/23 02/27/23 18:59 06:59 18:59 Weight 90.718 kg - Constitutional General appearance: Present: cooperative - EENT Eyes: Present: EOMI ENT: Present: hearing grossly normal - Neck Neck: Present: normal ROM - Respiratory Respiratory: bilateral: CTA - Cardiovascular Rhythm: regular Heart sounds: normal: S1, S2 - Gastrointestinal General gastrointestinal: Present: soft - Integumentary Integumentary: Present: normal turgor - Musculoskeletal Musculoskeletal: Present: gait normal - Psychiatric Psychiatric: Present: A&O x's 3, appropriate affect, intact judgment & insight - Additional findings Additional findings: Breast Exam: BRA: 3XL Inspection: There is erythema of the left breast related to radiation therapy she has been itching and there are some skin changes in the medial upper aspect of the left breast related to the itching with a rash Palpation: Right breast: No dominant masses or nodules of concern Right axilla: No adenopathy of concern Left breast: Postradiation and postsurgical changes with skin erythema and rash over the upper inner aspect of the left breast Left axilla: No evidence of seroma incision well-healed no adenopathy of concern Assessment and Plan Assessment: Impression: Patient status post left breast lumpectomy sentinel node biopsy for stage I invasive ductal carcinoma Patient seen by medical oncology will try to let resolved after the radiation is not going to do chemotherapy Patient no from radiation oncology reviewed patient has completed 3 weeks of radiation she will have 1 more week to complete Plan: I've recommended appointment with dermatology secondary to the rash and itching on the left breast She is at this time using steroid cream as well as Benadryl without relief Follow up here in one month Cc: Dr. Jenkins
== END ==
LOC: WWCWWP 08:35
PROVIDERS: ATTEND Surgery
DX: R92.8 Other abnormal and inconclusive findings on diagnostic imaging of breast (principal); C50.912 Malignant neoplasm of unspecified site of left female breast; N63.10 Unspecified lump in the right breast, unspecified quadrant; Z92.3 Personal history of irradiation; Z91.02 Food additives allergy status; Z87.891 Personal history of nicotine dependence

== ENCOUNTER → 2023-03-31 | Outpatient (CLI) | payer BC ==
--- NOTE | 2023-03-31 10:10 | BD ---
EXAMINATION TYPE: Axial Bone Density DATE OF EXAM: 03/31/2023 CLINICAL HISTORY: 62 years old Female. ICD-10 CODE: C50.412 CARCINOMA LT BREAST Height: 66 Weight: 201.0 FRAX RISK QUESTIONS: Alcohol (3 or more units per day): no Family History (Parent hip fracture): no Glucocorticoids (More than 3mos): no History of Fracture in Adulthood: Nasal Bones Secondary Osteoporosis: 1. Type 1 Diabetes: no 2. Hyperthyroidism: no 3. Menopause before 45: yes 4. Malnutrition: no 5. Chronic liver disease: no Rheumatoid Arthritis: no Current Tobacco Use: no RISK FACTORS HISTORY OF: Hip Fracture (Right/Left): no Spine Fracture: no History of Wrist Fracture: no Surgery to Spine/Hip(right/left)/Wrist (right/left): no Family History of Osteoporosis: Mother, Maternal Grandmother Active: no Diet low in dairy products/other sources of calcium: yes Postmenopausal woman: yes Take estrogen and/or progesterone medications: Hormone Danny past 2 weeks Lost more than 2 inches in height since high school: yes Frequent falls: yes Poor Health: no Hyperparathyroidism: no Adrenal Insufficiency: no MEDICATIONS: Prednisone or other steroids: no Thyroid Medications: no Osteoporosis Medications: no Additional Medications: BP Meds, Reflux Meds, Hormone Danny, Vit D, Calcium, Magnesium, Potasium, M ulti Vit Additional History: Breast Ca. October 2022 with radiation EXAM MEASUREMENTS: Bone mineral densitometry was performed using the [employer] System. Bone mineral density as measured about the Lumbar spine is: ----- L1-L4(G/cm2): 1.362 T Score Values are as follows: ----- L1: 2.0 ----- L2: 2.3 ----- L3: 1.2 ----- L4: 0.7 ----- L1-L4: 1.5 Z Score Values are as follows: ----- L1: 2.4 ----- L2: 2.7 ----- L3: 1.6 ----- L4: 1.0 ----- L1-L4: 1.9 Bone mineral density has: decreased -4.6 study of: 03/01/2019 Bone mineral density about the R hip (g/cm2): 1.124 Bone mineral density about the L hip (g/cm2): 1.169 T Score values are as follows: -----R Neck: 0.1 -----L Neck: 0.2 -----R Total: 0.9 -----L Total: 1.3 Z Score values are as follows: -----R Neck: 0.8 -----L Neck: 0.9 -----R Total: 1.3 -----L Total: 1.6 Bone mineral density has: decreased -4.9 since the study of 03/01/2019 FRAX%s: The graph provided illustrates a 5.8chance for a major osteoporotic fx and a 0.1chance for th e hips probability for fx in 10 years time. IMPRESSION: Normal (Values between +1 and -1 indicate normal bone mass). Consider repeating this study in 5 year s or sooner if there is some new clinical indication. NOTE: T-SCORE=SD OF THE YOUNG ADULT MEAN.
== END | disposition home or self-care (01) ==
LOC: RADBDWWP 09:31
PROVIDERS: ATTEND Internal Medicine Hematology & Oncology
DX: C50.412 Malignant neoplasm of upper-outer quadrant of left female breast (principal); Z78.0 Asymptomatic menopausal state
CPT/HCPCS: 77080

== ENCOUNTER → 2023-04-03 | Outpatient (CLI) | payer BC ==
[2023-04-03 09:47] VITALS: BP 158/87; PULSE 93; RESP 17; TEMP 98.7
--- NOTE | 2023-04-03 10:01 | P.PN ---
Subjective Progress Note Date: 04/03/23 Principal diagnosis: left breast stage IA invasive ductal cancer Dodie is 62 year old white female status post a left breast lumpectomy and SNB on 12-10-22. This was a G1 6mm dsinvasive ductal cancer, node(-), ER+, Pr+ Her2-. Post operatively she developed an axillary seroma which required drainage. She completed radiation therapy on 03-07-23. She is complaining of her left nipple feeling sore and at times being discolored. This just started 2 weeks ago after the radiation. She is taking letrazole and tolerating this without difficulty. The pain in her nipple started after she started the letrazole. Note Dr. Nichols 02-11-23 reviewed. Caffeine: occasional nicotine: stopped 4 years ago; used to smoke .5 pack /week for 20 years chocolate: occasional hormones: none BCP: 1 month 30 years ago Family History: father: prostate cancer Hormonal History: menarche: 14 M1, tubal ; breast fed: no menopause: hysterectomy 11 years ago 1 ovary left; done for bleeding Surgical History: 3 knee surgeries hysterectomy 3 foot surgeries tubaligation nose fracture Medical History: neuroapathy unknown origin HTN Social History: Nicotine: Stopped 40 years ago Alcohol: beer twice a week 2 or 3 Marijuana: twice a year - Constitutional Constitutional: Reports sweats, Denies chills, Denies fever - EENT Eyes: denies blurred vision, denies pain Ears: deny: decreased hearing, tinnitus Ears, nose, mouth and throat: Denies headache, Denies sore throat - Breasts Breasts: bilateral: as per HPI - Cardiovascular Cardiovascular: Denies chest pain, Denies shortness of breath - Respiratory Respiratory: Denies cough, Denies 7 - Gastrointestinal Gastrointestinal: Denies abdominal pain, Denies diarrhea, Denies nausea, Denies vomiting - Genitourinary (Female) Genitourinary: Denies dysuria, Denies hematuria - Menstruation Menstruation: Reports post hysterectomy - Musculoskeletal Musculoskeletal: Denies myalgias - Integumentary Integumentary: Denies pruritus, Denies rash - Neurological Neurological: Reports as per HPI, Denies numbness, Denies weakness - Psychiatric Psychiatric: Denies anxiety, Denies depression - Endocrine Endocrine: Denies fatigue, Denies weight change - Hematologic/Lymphatic Comment: none - Allergic/Immunologic Allergic/Immunologic: Reports seasonal allergies Past Medical History Past Medical History: Cancer, GERD/Reflux, Hypertension, Osteoarthritis (OA) Additional Past Medical History / Comment(s): Varicose veins, anemia, hx skin cancer History of Any Multi-Drug Resistant Organisms: None Reported Past Surgical History: Hysterectomy, Orthopedic Surgery, Tonsillectomy Additional Past Surgical History / Comment(s): Bilateral knee arthroscopy(left X1, right X2), torn tendons rt foot, heel spur rt foot, surgery for tubal , nasal surgery for fx nose. Right foot surgery 2019 Past Anesthesia/Blood Transfusion Reactions: No Reported Reaction Additional Past Anesthesia/Blood Transfusion Reaction / Comment(s): . Past Psychological History: No Psychological Hx Reported Smoking Status: Former smoker Past Alcohol Use History: Occasional Additional Past Alcohol Use History / Comment(s): Quit smoking 09/2018, smoked for 25 yrs on and off, "light smoker." Past Drug Use History: None Reported - Past Family History Father Family Medical History: Cancer Brother(s) Family Medical History: AFIB Medications and Allergies Home Medications Medication Instructions Recorded Confirmed Type Losartan Potassium [Cozaar] 100 mg PO DAILY 01/22/19 10/31/22 History Potassium 99 mg PO DAILY 07/19/19 10/31/22 History Cholecalciferol [Vitamin D3 (25 50 mcg PO DAILY 03/15/22 10/31/22 History Mcg = 1000 Iu)] Magnesium Oxide [Moon] 500 mg PO BID 03/15/22 10/31/22 History Ondansetron [Zofran ODT] 4 mg PO Q8HR #12 tab 03/15/22 10/31/22 Rx Vitamin B-12 Complex 1 tab PO DAILY 03/15/22 10/31/22 History Dexlansoprazole [Dexilant] 60 mg PO DAILY PRN 10/31/22 10/31/22 History Allergies Allergy/AdvReac Type Severity Reaction Status Date / Time bee venom protein (honey bee) Allergy Severe Swelling Verified 10/31/22 11:07 Objective - Vital Signs Vital signs: Vital Signs Temp 98.7 F 04/03/23 09:45 Pulse 93 04/03/23 09:45 Resp 17 04/03/23 09:45 BP 158/87 04/03/23 09:45 Pulse Ox 96 04/03/23 09:45 FiO2 Intake & Output 04/02/23 04/03/23 04/03/23 18:59 06:59 18:59 Weight 90.718 kg - Constitutional General appearance: Present: cooperative - EENT Eyes: Present: EOMI ENT: Present: hearing grossly normal - Neck Neck: Present: normal ROM - Respiratory Respiratory: bilateral: CTA - Cardiovascular Heart sounds: normal: S1, S2 - Musculoskeletal Musculoskeletal: Present: gait normal - Psychiatric Psychiatric: Present: A&O x's 3, appropriate affect, intact judgment & insight - Additional findings Additional findings: Breast Exam: BRA: 40DD Inspection: Postradiation surgical changes left breast, no evidence of inf ection Palpation: Right breast: Multi-positional exam fibrocystic changes no discrete dominant masses or nodules of concern Right axilla: No adenopathy of concern Left breast: multi-positional exam no dominant masses or nodules of concern, postradiation and surgical changes left breast, the area of the nipple areolar region is tender to palpation Left axilla: No adenopathy of concern, incision clean and dry and well-healed Assessment and Plan Assessment: Impression: Patient status post left breast lumpectomy sentinel node biopsy for stage I invasive ductal carcinoma surgery performed 12-10-22 Patient status post radiation therapy Patient presently on letrazole Tender left nipple areolar complex Plan: The tenderness started after the patient began letrazole she is going to discuss this with Dr. Nichols At this time no evidence of any infection left breast healing well Follow-up here in 4 months Cc: Dr. Jenkins
== END ==
LOC: WWCWWP 09:28
PROVIDERS: ATTEND Surgery
DX: Z90.12 Acquired absence of left breast and nipple (principal); Z85.9 Personal history of malignant neoplasm, unspecified; K21.9 Gastro-esophageal reflux disease without esophagitis; I10 Essential (primary) hypertension; M19.90 Unspecified osteoarthritis, unspecified site; Z98.890 Other specified postprocedural states; Z91.030 Bee allergy status; Z87.891 Personal history of nicotine dependence

== ENCOUNTER → 2023-05-27 | Outpatient (CLI) | payer BC ==
[2023-05-27 22:26] LABS: T4, Free (Free Thyroxine) 1.26 ng/dL (0.80-1.80)
== END | disposition home or self-care (01) ==
LOC: LABWHC1 12:31
PROVIDERS: ATTEND Internal Medicine Interventional Cardiology
DX: E03.9 Hypothyroidism, unspecified (principal)
CPT/HCPCS: 36415; 84439; 84443

== ENCOUNTER 2023-06-10 13:07 | Emergency (ER) | payer BC ==
--- NOTE | 2023-06-10 13:23 | ED ---
Skin/Abscess/FB HPI - General Source: patient Mode of arrival: ambulatory Limitations: no limitations <Hagerman,Sarita - Last Filed: 06/10/23 13:22> - General Source: RN notes reviewed, old records reviewed <Jorge Luis Quintanilla - Last Filed: 06/10/23 14:47> <Anshu Livingston - Last Filed: 06/10/23 16:52> - General Chief complaint: Skin/Abscess/Foreign Body Stated complaint: Left Breast Pain Time Seen by Provider: 06/10/23 13:23 - History of Present Illness Initial comments: 62-year-old female with left breast pain, symptoms have progressed over the past several days patient had contacted her breast surgeon who is currently out of town. No fever. Patient had breast cancer lumpectomy in November of this year. She had issues with recurrent infection. She had also undergone radiation and is currently not receiving any treatment. (Jorge Luis Quintanilla) - Related Data Home Medications Medication Instructions Recorded Confirmed Losartan Potassium [Cozaar] 100 mg PO QAM 01/22/19 04/03/23 Potassium 99 mg PO DAILY 07/19/19 04/03/23 Cholecalciferol [Vitamin D3 (25 50 mcg PO DAILY 03/15/22 04/03/23 Mcg = 1000 Iu)] Magnesium Oxide [Moon] 500 mg PO BID 03/15/22 04/03/23 Vitamin B-12 Complex 1 tab PO DAILY 03/15/22 04/03/23 Dexlansoprazole [Dexilant] 60 mg PO QAM 10/31/22 04/03/23 Ondansetron [Zofran ODT] 4 mg PO Q8HR PRN 11/26/22 04/03/23 Pramipexole [Mirapex] 0.25 mg PO HS 11/26/22 04/03/23 rOPINIRole HCL 0.25 mg PO DIRECTED PRN 11/26/22 04/03/23 Previous Rx's Medication Instructions Recorded Cephalexin [Keflex] 500 mg PO Q6HR 1 Days #20 cap 12/31/22 HYDROcodone/APAP 5-325MG [Vaiden 5] 1 - 2 each PO Q4H PRN #20 tab 12/31/22 Cephalexin [Keflex] 500 mg PO Q6HR 1 Days #20 cap 01/03/23 Sulfamethox-Tmp 800-160Mg [Bactrim 1 tab PO Q12HR #14 tab 01/09/23 DS 800-160 mg] Cephalexin [Keflex] 500 mg PO Q6HR 1 Days #20 cap 06/10/23 HYDROcodone/APAP 5-325MG [Vaiden 1 tab PO Q6HR PRN 3 Days #12 tab 06/10/23 5-325] Allergies Allergy/AdvReac Type Severity Reaction Status Date / Time bee venom protein (honey bee) Allergy Severe Swelling Verified 04/03/23 09:44 Review of Systems ROS Other: All systems not noted in ROS Statement are negative. <Sarita Hahn - Last Filed: 06/10/23 13:22> ROS Other: All systems not noted in ROS Statement are negative. <Jorge Luis Quintanilla - Last Filed: 06/10/23 14:47> ROS Other: All systems not noted in ROS Statement are negative. <Anshu Livingston - Last Filed: 06/10/23 16:52> ROS Statement: Those systems with pertinent positive or pertinent negative responses have been documented in the HPI. Past Medical History Past Medical History: Cancer, GERD/Reflux, Hypertension, Neurologic Disorder, Osteoarthritis (OA) Additional Past Medical History / Comment(s): Varicose veins, anemia, hx skin cancer, neuropathy in bilateral feet, Restless Leg Syndrome. History of Any Multi-Drug Resistant Organisms: None Reported Past Surgical History: Hysterectomy, Orthopedic Surgery, Tonsillectomy Additional Past Surgical History / Comment(s): Bilateral knee arthroscopy(left X1, right X2), surgery for torn tendons right foot, right heel spur surgery, right foot surgery surgery for tubal , nasal surgery, bilateral cataract surgery. Past Anesthesia/Blood Transfusion Reactions: No Reported Reaction Additional Past Anesthesia/Blood Transfusion Reaction / Comment(s): . Past Psychological History: No Psychological Hx Reported Smoking Status: Former smoker Past Alcohol Use History: Occasional Past Drug Use History: None Reported - Past Family History Father Family Medical History: Cancer Brother(s) Family Medical History: AFIB <Sarita Hahn - Last Filed: 06/10/23 13:22> General Exam Limitations: no limitations <Sarita Hahn - Last Filed: 06/10/23 13:22> General appearance: alert, in no apparent distress Head exam: Present: atraumatic, normocephalic Eye exam: Present: normal appearance, PERRL ENT exam: Present: normal exam Neck exam: Present: normal inspection. Absent: tenderness Respiratory exam: Present: normal lung sounds bilaterally. Absent: respiratory distress, wheezes Cardiovascular Exam: Present: regular rate, normal rhythm GI/Abdominal exam: Present: soft. Absent: distended, tenderness Extremities exam: Present: normal inspection Neurological exam: Present: alert, oriented X3 Psychiatric exam: Present: normal affect, normal mood Skin exam: Present: warm, dry, other (Left breast, tenderness to palpation, palpable mass versus abscess in the inferior lateral portion of the left breast) <Jorge Luis Quintanilla - Last Filed: 06/10/23 14:47> Course <Jorge Luis Quintanilla - Last Filed: 06/10/23 14:47> Vital Signs 06/10/23 06/10/23 13:19 16:01 Temperature 98.1 F 97.9 F Pulse Rate 93 67 Respiratory 20 16 Rate Blood Pressure 147/84 140/76 O2 Sat by Pulse 98 99 Oximetry - Reevaluation(s) Reevaluation #1: 06/10/23 1500 Awaiting ultrasound results, patient care signed out at shift change. (Jorge Luis Quintanilla) Medical Decision Making <Sarita Hahn - Last Filed: 06/10/23 13:22> <Anshu Livingston - Last Filed: 06/10/23 16:52> - Medical Decision Making Visual Physical Exam Vital signs reviewed General: Well-appearing, nontoxic, no acute distress. Head: Normocephalic, atraumatic Eyes: PERRLA, EOMI ENT: Airway patent Chest: Nonlabored breathing Skin: No visual rash, normal skin tone Neuro: Alert and oriented 3 Musculoskeletal: No gross abnormalities I performed with the Quicknote portion Sarita Hahn PARKING PATROLLER-c (Sarita Hahn) The patient was signed out to me from Dr. Quintanilla pending completion of the ultrasound as well as reevaluation. Was pt. sent in by a medical professional or institution (, PA, PARKING PATROLLER, urgent care, hospital, or penitentiary...) When possible be specific @ -No Did you speak to anyone other than the patient for history (EMS, parent, family, police, friend...)? What history was obtained from this source @ -No Did you review nursing and triage notes (agree or disagree)? Why? @ -I reviewed and agree with nursing and triage notes Were old charts reviewed (outside hosp., previous admission, EMS record, old EKG, old radiological studies, urgent care reports/EKG's, penitentiary records)? Report findings @ -No old charts were reviewed Differential Diagnosis (chest pain, altered mental status, abdominal pain women, abdominal pain men, vaginal bleeding, weakness, fever, dyspnea, syncope, headache, dizziness, GI bleed, back pain, seizure, CVA, palpatations, mental health)? @ -Breast abscess, breast cancer, cellulitis EKG interpreted by me (3pts min.). @ -None X-rays interpreted by me (1pt min.). @ -None done CT interpreted by me (1pt min.). @ -None done U/S interpreted by me (1pt. min.). @ -A breast ultrasound of the left breast was obtained and was interpreted by myself showing no evidence for ordered as a fluid collection or mass. There is streaky edema seen within the subcutaneous tissues nor organizing fluid collection. There is area of shadowing felt to represent postsurgical changes noted patient's scar. Radiologist recommended mammogram for further evaluation. What testing was considered but not performed or refused? (CT, X-rays, U/S, labs)? Why? @ -None What meds were considered but not given or refused? Why? @ -None Did you discuss the management of the patient with other professionals (professionals i.e. , PA, PARKING PATROLLER, lab, RT, psych nurse, social security benefits interviewer, ripening room hand, teacher, sustainability officer, welfare case worker)? Give summary @ -No Was smoking cessation discussed for >3mins.? @ -No Was critical care preformed (if so, how long)? @ -No Were there social determinants of health that impacted care today? How? (Homelessness, low income, unemployed, alcoholism, drug addiction, transportation, low edu. Level, literacy, decrease access to med. care, halfway, rehab)? @ -No Was there de-escalation of care discussed even if they declined (Discuss DNR or withdrawal of care, Hospice)? DNR status @ -No What co-morbidities impacted this encounter? (DM, HTN, Smoking, COPD, CAD, Cancer, CVA, ARF, Chemo, Hep., AIDS, mental health diagnosis, sleep apnea, morbid obesity)? @ -Previous breast cancer Was patient admitted / discharged? Hospital course, mention meds given and route, prescriptions, significant lab abnormalities, going to OR and other pertinent info. @ -The patient was seen and evaluated emergency department. The patient was initially seen by Dr. Quintanilla for complete HPI. I evaluated the patient is a sign out pending ultrasound. Ultrasound did show subcutaneous edema without any signs of abscess. I did reevaluate the patient and told of the results and she was relieved. The patient did have minor swelling to the left breast and had tenderness to palpation with minor warmth. The patient did have minor erythema as well. The patient be treated for cellulitis at this time and was given a dose of Keflex and Vaiden for pain control. The patient was given a prescription for Vaiden for pain as well as Keflex be taken at home. The patient was advised to follow-up with her breast surgeon for a mammogram and further evaluation. The patient was agreeable to this and all her questions were answered appropriate. The patient was discharged home in stable condition. Undiagnosed new problem with uncertain prognosis? @ -No Drug Therapy requiring intensive monitoring for toxicity (Heparin, Nitro, Insulin, Cardizem)? @ -No Were any procedures done? @ -No Diagnosis/symptom? @ -Left breast cellulitis, swelling Acute, or Chronic, or Acute on Chronic? @ -Acute Uncomplicated (without systemic symptoms) or Complicated (systemic symptoms)? @ -Uncomplicated Side effects of treatment? @ -No Exacerbation, Progression, or Severe Exacerbation? @ -No Poses a threat to life or bodily function? How? (Chest pain, [place], [place], pneumonia, PE, COPD, DKA, ARF, appy, cholecystitis, CVA, Diverticulitis, Homicidal, Suicidal, threat to staff... and all critical care pts) @ -No (Anshu Livingston) Disposition <Sarita Hahn - Last Filed: 06/10/23 13:22> <Jorge Luis Quintanilla - Last Filed: 06/10/23 14:47> Is patient prescribed a controlled substance at d/c from ED?: No Time of Disposition: 15:15 <Anshu Livingston - Last Filed: 06/10/23 16:52> Clinical Impression: Breast swelling, Cellulitis of breast Disposition: HOME SELF-CARE Condition: Stable Instructions (If sedation given, give patient instructions): Cellulitis (ED), Breast Mass (ED) Prescriptions: Cephalexin [Keflex] 500 mg PO Q6HR 1 Days #20 cap HYDROcodone/APAP 5-325MG [Vaiden 5-325] 1 tab PO Q6HR PRN 3 Days #12 tab PRN Reason: Pain Referrals: Ashvin Jenkins MD [Primary Care Provider] - 1-2 days Vanessa Leiva MD [STAFF PHYSICIAN] - 1-2 days
[2023-06-10] MEDS ORDERED: HYDROmorphone 1 MG/ML 1 ML SYRINGE IM STA (13:52)
--- NOTE | 2023-06-10 15:04 | USB ---
Reason for Exam: Clinical finding. Patient History: Menarche at age 14. Patient has no children. Hysterectomy at age 51. Breast cancer, left, age 62. Breast cancer, left, age 62. 12/10/2022, Lumpectomy on the Left side. 12/10/2022, Malignant MG pre op needle loc LT on the left side. 10/23/2022, Malignant US biopsy breast VAD LT on the left side. Technique: Method: Whole Breast Handheld. Prior Study Comparison: 10/15/2022 Bilateral MG 3D diag mammo w/cad TERESSA, [facility]. 10/23/2022 Left MG diagnostic mammo LT wo CAD., [facility]. Findings: The whole breast of the left breast, the axilla of the left breast and the retroareolar of the left breast were scanned. Imaged: Ultrasound imaging of: All 4 quadrants, the retroareolar region and axilla. No evidence for organizing fluid collection or mass. Streaky edema seen within the subcutaneous tissues no organizing fluid collection. Area of shadowing felt to represent postsurgical change near the patient's scar. Overall Assessment: Benign, BI-RAD 2 Management: Diagnostic Mammogram of both breasts. Considered diagnostic mammogram for follow-up from prior surgery immediately given that has been 6 months. Soft tissue edema which is nonspecific. Correlate clinically for lymphedema. A clinical breast exam by your physician is recommended on an annual basis and results should be correlated with mammographic findings. This exam should not preclude additional follow-up of suspicious palpable abnormalities. Results were given to the patient verbally at the time of exam. Electronically signed and approved by: Jorge Luis Vital DO
[2023-06-10] MEDS ORDERED: HYDROcodone/APAP 5-325MG 1 EACH TAB PO STA (15:46)
[2023-06-10] MEDS ORDERED: CEPHALEXIN 500 MG CAP PO STA (15:46)
[2023-06-10 16:03] VITALS: BP 140/76; PULSE 67; RESP 16; TEMP 97.9
== END 2023-06-10 16:04 | disposition home or self-care (01) ==
LOC: EC 13:07
DX: N61.0 Mastitis without abscess (principal); N63.0 Unspecified lump in unspecified breast; I10 Essential (primary) hypertension; Z87.891 Personal history of nicotine dependence; Z79.899 Other long term (current) drug therapy; Z91.030 Bee allergy status
CPT/HCPCS: 99283; 76641; 96372; J1170

== ENCOUNTER → 2023-06-16 | Outpatient (CLI) | payer BC ==
--- NOTE | 2023-06-16 13:29 | MM ---
Reason for Exam: Hx of breast cancer, conservation therapy. Last screening mammogram was performed 8 month(s) ago. Patient History: Menarche at age 14. Patient has no children. Hysterectomy at age 51. Breast cancer, left, age 62. Breast cancer, left, age 62. 12/10/2022, Lumpectomy on the Left side. 12/10/2022, Malignant MG pre op needle loc LT on the left side. 10/23/2022, Malignant US biopsy breast VAD LT on the left side. Prior Study Comparison: 10/15/2022 Bilateral MG 3D diag mammo w/cad TERESSA, [facility]. 10/15/2022 Left US breast LT, [facility]. 10/23/2022 Left MG diagnostic mammo LT wo CAD., [facility]. 12/10/2022 Right US breast RT, [facility]. 06/10/2023 Left US breast LT, [facility]. Tissue Density: The breast tissue is heterogeneously dense. This may lower the sensitivity of mammography. Findings: Analyzed By CAD. Pattern is asymmetric with greater density on the left compared to the right. Some skin thickening diffusely through the right present. Postsurgical changes are evident in the right breast upper outer quadrant. Left breast appears stable. Some benign punctate calcifications are present. No significant interval changes are evident. No suspicious groups of microcalcifications, spiculated or lobular masses, architectural distortion or other secondary signs of malignancy are mammographically apparent. No mammographic abnormalities at the level marked as a palpable by the patient. Overall Assessment: Benign, BI-RAD 2 Management: Diagnostic Mammogram of the left breast in 6 months. A negative mammogram report should not preclude additional follow up of suspicious palpable abnormalities. Patient should continue monthly self breast exam. A clinical breast exam by your physician is recommended on an annual basis and results should be correlated with mammographic findings. Electronically signed and approved by: [place] D.O. Radiologis
== END | disposition home or self-care (01) ==
LOC: RADMAMWWP 12:59
PROVIDERS: ATTEND Internal Medicine
DX: C50.912 Malignant neoplasm of unspecified site of left female breast (principal)
CPT/HCPCS: 77062; 77066

== ENCOUNTER → 2023-08-01 | Outpatient (CLI) | payer BC ==
[2023-08-01 15:54] LABS: Basophils # (A) 0.04 X 10*3/uL (0.00-0.10); Basophils % (A) 0.8 %; Eosinophils # (A) 0.26 X 10*3/uL (0.04-0.35); Eosinophils % (A) 5.1 %; HCT 40.5 % (37.2-46.3); HGB 13.1 d/dL (12.0-15.0); Lymphocytes # (A) 0.68 X 10*3/uL (0.90-5.00); Lymphocytes % (A) 13.4 %; MCH 33.8 pg (27.0-32.0); MCHC 32.3 d/dL (32.0-37.0); MCV 104.4 FL (80.0-97.0); Mean Platelet Volume 10.1 FL (9.5-12.2); Monocytes # (A) 0.45 X 10*3/uL (0.20-1.00); Monocytes % (A) 8.8 %; NRBC Per 100 WBC 0 X 10*3/uL (0.00-0.01); Neutrophils # (A) 3.65 X 10*3/uL (1.80-7.70); Neutrophils % (A) 71.7 %; Platelet Count 167 X 10*3/uL (140-440); RBC 3.88 X 10*6/uL (4.10-5.20); RDW 13.8 % (11.5-14.5); WBC 5.09 X 10*3/uL (4.50-10.00)
[2023-08-01 17:14] LABS: % Iron Saturation 28.31 (12.00-45.00); ALT 25 U/L (8-44); AST 39 U/L (13-35); Albumin 4.2 d/dL (3.8-4.9); Albumin/Globulin Ratio 1.45 Ratio (1.60-3.17); Alkaline Phosphatase 135 U/L (41-126); Blood Urea Nitrogen 11.2 mg/dL (9.0-27.0); Calcium 9.8 mg/dL (8.7-10.3); Carbon Dioxide 24.1 mmol/L (21.6-31.8); Chloride 96 mmol/L (96-109); Chol/HDL Ratio 2.91 Ratio; Globulin 2.9 d/dL (1.6-3.3); Glucose 118 mg/dL (70-110); Iron 92 UG/DL (50-170); LDL Cholesterol,Calculated 147.9 mg/dL (0.0-131.0); Magnesium 1.5 mg/dL (1.5-2.4); Sodium 137 mmol/L (135-145); T4, Free (Free Thyroxine) 1.23 ng/dL (0.80-1.80); Total Bilirubin 0.6 mg/dL (0.3-1.2); Total Iron Binding Capacity 325 UG/DL (228-460); Total Protein 7.1 d/dL (6.2-8.2)
== END | disposition home or self-care (01) ==
LOC: LABWHC1 08:44
PROVIDERS: ATTEND Internal Medicine
DX: I10 Essential (primary) hypertension (principal); G60.9 Hereditary and idiopathic neuropathy, unspecified
CPT/HCPCS: 36415; 80053; 80061; 82607; 82746; 83540; 83550; 83735; 84439; 84443; 85025

== ENCOUNTER → 2023-09-11 | Outpatient (CLI) | payer BC ==
--- NOTE | 2023-09-11 16:09 | P.PN ---
Subjective Progress Note Date: 09/11/23 Principal diagnosis: left breast invasive ductal cancer stage I 2022 Progress Note Date: 09-11-23 Principal diagnosis: left breast stage IA invasive ductal cancer Dodie is 62 year old white female status post a left breast lumpectomy and SNB on 12-10-22. This was a G1 6mm invasive ductal cancer, node(-), ER+, Pr+ Her2-. Post operatively she developed an axillary seroma which required drainage. She completed radiation therapy on 03-07-23. She was complaining of her left nipple feeling sore and at times being discolored on her last visit. This just started 2 weeks ago after the radiation. She is taking letrazole and tolerating this without difficulty. The pain in her nipple started after she started the letrazole. She was in the ER June 10 secondary to pain under the left breast. [place] [id number] which was BIRADS 2 and did not show any fluid collection. A mammogram was done on 06-16-23 this was BIRADS 2 and repeat left breast mammogram in 6 months was recommended. The pain resolved. She does not have any lups masses or nodules that she is concerned about at this time. Left nipple tenderness which she had initially post procedure has resolved. Note Dr. Valentino reviewed 04-30-23 Caffeine: occasional nicotine: stopped 4 years ago; used to smoke .5 pack /week for 20 years chocolate: occasional hormones: none BCP: 1 month 30 years ago Family History: father: prostate cancer Hormonal History: menarche: 14 M1, tubal ; breast fed: no menopause: hysterectomy 11 years ago 1 ovary left; done for bleeding Surgical History: 3 knee surgeries hysterectomy 3 foot surgeries tubaligation nose fracture Medical History: neuroapathy unknown origin HTN Social History: Nicotine: Stopped 40 years ago Alcohol: beer twice a week 2 or 3 Marijuana: twice a year - Constitutional Constitutional: Reports sweats, Denies chills, Denies fever - EENT Eyes: denies blurred vision, denies pain Ears: deny: decreased hearing, tinnitus Ears, nose, mouth and throat: Denies headache, Denies sore throat - Breasts Breasts: bilateral: as per HPI - Cardiovascular Cardiovascular: Denies chest pain, Denies shortness of breath - Respiratory Respiratory: Denies cough - Gastrointestinal Gastrointestinal: Denies abdominal pain, Denies diarrhea, Denies nausea, Denies vomiting - Genitourinary (Female) Genitourinary: Denies dysuria, Denies hematuria - Menstruation Menstruation: Reports post hysterectomy - Musculoskeletal Musculoskeletal: Denies myalgias - Integumentary Integumentary: Denies pruritus, Denies rash - Neurological Neurological: Reports as per HPI, Denies numbness, Denies weakness - Psychiatric Psychiatric: Denies anxiety, Denies depression - Endocrine Endocrine: Denies fatigue, Denies weight change - Hematologic/Lymphatic Comment: none - Allergic/Immunologic Allergic/Immunologic: Reports seasonal allergies Past Medical History Past Medical History: Cancer, GERD/Reflux, Hypertension, Osteoarthritis (OA) Additional Past Medical History / Comment(s): Varicose veins, anemia, hx skin cancer History of Any Multi-Drug Resistant Organisms: None Reported Past Surgical History: Hysterectomy, Orthopedic Surgery, Tonsillectomy Additional Past Surgical History / Comment(s): Bilateral knee arthroscopy(left X1, right X2), torn tendons rt foot, heel spur rt foot, surgery for tubal , nasal surgery for fx nose. Right foot surgery 2019 Past Anesthesia/Blood Transfusion Reactions: No Reported Reaction Additional Past Anesthesia/Blood Transfusion Reaction / Comment(s): . Past Psychological History: No Psychological Hx Reported Smoking Status: Former smoker Past Alcohol Use History: Occasional Additional Past Alcohol Use History / Comment(s): Quit smoking 09/2018, smoked for 25 yrs on and off, "light smoker." Past Drug Use History: None Reported - Past Family History Father Family Medical History: Cancer Brother(s) Family Medical History: AFIB Medications and Allergies Home Medications Medication Instructions Recorded Confirmed Type Losartan Potassium [Cozaar] 100 mg PO DAILY 01/22/19 10/31/22 History Potassium 99 mg PO DAILY 07/19/19 10/31/22 History Cholecalciferol [Vitamin D3 (25 50 mcg PO DAILY 03/15/22 10/31/22 History Mcg = 1000 Iu)] Magnesium Oxide [Moon] 500 mg PO BID 03/15/22 10/31/22 History Ondansetron [Zofran ODT] 4 mg PO Q8HR #12 tab 03/15/22 10/31/22 Rx Vitamin B-12 Complex 1 tab PO DAILY 03/15/22 10/31/22 History Dexlansoprazole [Dexilant] 60 mg PO DAILY PRN 10/31/22 10/31/22 History Allergies Allergy/AdvReac Type Severity Reaction Status Date / Time bee venom protein (honey bee) Allergy Severe Swelling Verified 10/31/22 11:07 Objective - Constitutional General appearance: Present: cooperative - EENT Eyes: Present: EOMI ENT: Present: hearing grossly normal - Neck Neck: Present: normal ROM - Respiratory Respiratory: bilateral: CTA - Cardiovascular Rhythm: regular Heart sounds: normal: S1, S2 - Gastrointestinal General gastrointestinal: Present: soft - Integumentary Integumentary: Present: normal turgor - Musculoskeletal Musculoskeletal: Present: gait normal - Psychiatric Psychiatric: Present: A&O x's 3, appropriate affect, intact judgment & insight - Additional findings Additional findings: Breast Exam: BRA: 40DD Inspection: Postradiation surgical changes left breast, no evidence of infection Palpation: Right breast: Multi-positional exam fibrocystic changes no discrete dominant masses or nodules of concern Right axilla: No adenopathy of concern Left breast: multi-positional exam no dominant masses or nodules of concern, postradiation and surgical changes left breast Left axilla: No adenopathy of concern, incision clean and dry and well-healed Assessment and Plan Assessment: Impression: Patient status post left breast lumpectomy sentinel node biopsy for stage I invasive ductal carcinoma surgery performed 12-10-22 Patient status post radiation therapy Patient presently on letrazole Tender left nipple areolar complex resolved Plan: [place] [address] which was BIRADS 2 Follow-up in 6 months for examination Continue to follow with medical and radiation oncology Follow-up here in 6 months Bilateral mammogram in May 2024 with examination at that time as well Cc: Dr. Jenkins
== END ==
LOC: WWCWWP 15:27
PROVIDERS: ATTEND Surgery
DX: C50.912 Malignant neoplasm of unspecified site of left female breast (principal); I10 Essential (primary) hypertension; M19.90 Unspecified osteoarthritis, unspecified site; K21.9 Gastro-esophageal reflux disease without esophagitis; Z85.828 Personal history of other malignant neoplasm of skin; Z87.891 Personal history of nicotine dependence; Z92.3 Personal history of irradiation; Z91.030 Bee allergy status; Z90.710 Acquired absence of both cervix and uterus; Z17.0 Estrogen receptor positive status [ER+]

== ENCOUNTER → 2023-10-02 | Outpatient (CLI) | payer BC ==
--- NOTE | 2023-10-02 08:11 | US ---
EXAMINATION TYPE: US abdomen complete DATE OF EXAM: 10/02/2023 COMPARISON: US CLINICAL INDICATION: Female, 63 years old with history of R74.8 ELEV ALKALINE PHOSPHATASE LEVELS; Oralia vated labs TECHNIQUE: Multiple sonographic images of the abdomen are obtained. FINDINGS: EXAM MEASUREMENTS: Liver Length: 18.7 cm Gallbladder Wall: 0.2 cm CBD: 0.3 cm Spleen: 10.0 cm Right Kidney: 9.6 x 4.7 x 4.8 cm Left Kidney: 9.8 x 5.6 x 5.3 cm GARNISHER NOTES: Pancreas: 2mm panc duct visualized, tail obscured by overlying bowel gas Liver: Enlarged Gallbladder: wnl Evidence for sonographic Quintero's sign: No CBD: wnl Spleen: wnl Right Kidney: Possible isoechoic mass vs. lobulation lower/lateral= 3.6 x 2.4 x 2..7 cm Left Kidney: wnl Upper IVC: wnl Abd Aorta: wnl The liver is homogenous. The intrahepatic portion of the IVC and proximal abdominal aorta are within normal limits. There is no evidence of cholelithiasis. Common bile duct is unremarkable. The visu alized portions of the pancreas are homogenous. The spleen is unremarkable. Kidneys are symmetric a nd free of hydronephrosis. No renal lesions are seen. IMPRESSION: 1. Hepatomegaly. 2. Isoechoic mass right kidney difficult to exclude. Contrast-enhanced CT recommended.
== END | disposition home or self-care (01) ==
LOC: RADUSWWP 07:38
PROVIDERS: ATTEND Internal Medicine
DX: N28.89 Other specified disorders of kidney and ureter (principal); R16.0 Hepatomegaly, not elsewhere classified; R74.8 Abnormal levels of other serum enzymes
CPT/HCPCS: 76700

== ENCOUNTER → 2023-10-16 | Outpatient (CLI) | payer BC ==
--- NOTE | 2023-10-16 14:29 | CT ---
EXAMINATION TYPE: CT abdomen wo/w con DATE OF EXAM: 10/16/2023 COMPARISON: Abnormal ultrasound on 10/02/2023. HISTORY: Question of renal mass on ultrasound. Evaluate. CT DLP: 2058.5 mGycm Automated exposure control for dose reduction was used. TECHNIQUE: Helical acquisition of images was performed from the lung bases through the top of iliac crest to include entire abdomen. CONTRAST: Performed with Oral Contrast and without and with IV Contrast, patient injected with 100 mL of Isovue 300. FINDINGS: LUNG BASES: No significant abnormality is appreciated. LIVER/GB: No significant abnormality is appreciated. PANCREAS: No significant abnormality is seen. SPLEEN: No significant abnormality is seen. ADRENALS: No significant abnormality is seen. KIDNEYS: No significant abnormality is seen. BOWEL: No significant abnormality is seen. LYMPH NODES: No significant abnormality is seen. OSSEOUS STRUCTURES: Scattered degenerative changes are seen throughout the spine. There are no acute osseous abnormalities. FREE AIR: No free air is visualized. OTHER: IMPRESSION: 1. NO RENAL MASS IDENTIFIED. 2. NO ACUTE FINDINGS.
== END | disposition home or self-care (01) ==
LOC: RADCTMAIN 12:27
PROVIDERS: ATTEND Family Medicine
DX: R19.09 Other intra-abdominal and pelvic swelling, mass and lump (principal)
CPT/HCPCS: 74170; Q9967

== ENCOUNTER → 2023-11-28 | Outpatient (CLI) | payer BC ==
[2023-11-29 03:21] LABS: ALT 19 U/L (8-44); AST 32 U/L (13-35); Chol/HDL Ratio 1.64 Ratio; Creatine Kinase 39 U/L (26-186); LDL Cholesterol,Calculated 51.8 mg/dL (0.0-131.0)
== END | disposition home or self-care (01) ==
LOC: LABWHC1 15:46
PROVIDERS: ATTEND Internal Medicine Interventional Cardiology
DX: E78.2 Mixed hyperlipidemia (principal)
CPT/HCPCS: 36415; 80061; 82550; 84450; 84460

== ENCOUNTER → 2024-01-08 | Outpatient (CLI) | payer BC ==
--- NOTE | 2024-01-08 13:55 | MM ---
Reason for Exam: Hx of breast cancer, conservation therapy. Last screening mammogram was performed 7 month(s) ago. Patient History: Menarche at age 14. Patient has no children. Hysterectomy at age 51. Breast cancer, left, age 62. Breast cancer, left, age 62. 12/10/2022, Lumpectomy on the Left side. 12/10/2022, Malignant MG pre op needle loc LT on the left side. 10/23/2022, Malignant US biopsy breast VAD LT on the left side. 2022, Radiation Therapy on the left side. Tissue Density: The breasts are heterogeneously dense, which may obscure small masses. Findings: Analyzed By CAD. Postsurgical and posttreatment changes redemonstrated on the left. No significant change in the interval. Ongoing short interval posttreatment follow-up is recommended on the left. Overall Assessment: Probably benign, BI-RAD 3 Management: Diagnostic Mammogram of the left breast in 6 months. . Results were given to the patient verbally at the time of exam. Patient should continue monthly self-breast exams. A clinical breast exam by your physician is recommended on an annual basis. This exam should not preclude additional follow-up of suspicious palpable abnormalities. Electronically signed and approved by: Garima House M.D. Radiologist
== END | disposition home or self-care (01) ==
LOC: RADMAMWWP 10:32
PROVIDERS: ATTEND Family Medicine
DX: R92.333 Mammographic heterogeneous density, bilateral breasts (principal); R68.89 Other general symptoms and signs; Z85.3 Personal history of malignant neoplasm of breast
CPT/HCPCS: 77062; 77066

== ENCOUNTER → 2024-03-12 | Outpatient (CLI) | payer BC ==
[2024-03-12 15:19] VITALS: BP 145/86; PULSE 65; RESP 17; TEMP 98.3
--- NOTE | 2024-03-12 15:21 | P.PN ---
Subjective Progress Note Date: 03/12/24 left breast invasive ductal cancer stage I 2022 Dodie is 63 year old white female status post a left breast lumpectomy and SNB on 12-10-22. This was a G1 6mm invasive ductal cancer, node(-), ER+, Pr+ Her2-. Post operatively she developed an axillary seroma which required d rainage. She completed radiation therapy on 03-07-23. She was complaining of her left nipple feeling sore and at times being discolored on her last visit. This started after the radiation. She is taking letrazole and tolerating this without difficulty. The pain in her nipple started after she started the letrazole. She was in the ER June 10, 2023 secondary to pain under the left breast. [place] [id number] which was BIRADS 2 and did not show any fluid collection. A mammogram was done on 06-16-23 this was BIRADS 2 and repeat left breast mammogram in 6 months was recommended. The pain resolved. She does not have any lumps masses or nodules that she is concerned about at this time. Left nipple tenderness which she had initially post procedure has resolved. Note Dr. Nichols reviewed 10-03-23 Bilateral mammogram 01-08-24 BIRAD 3 repeat left breast mammogram in 6 months, personally reviewed bilateral one year The patient states in the last month the left breast is more swollen, it is not painful. Caffeine: occasional nicotine: stopped 4 years ago; used to smoke .5 pack /week for 20 years chocolate: occasional hormones: none BCP: 1 month 30 years ago Family History: father: prostate cancer Hormonal History: menarche: 14 M1, tubal ; breast fed: no menopause: hysterectomy 11 years ago 1 ovary left; done for bleeding Surgical History: 3 knee surgeries hysterectomy 3 foot surgeries tubaligation nose fracture Medical History: neuroapathy unknown origin HTN Social History: Nicotine: Stopped 40 years ago Alcohol: beer twice a week 2 or 3 Marijuana: twice a year - Constitutional Constitutional: Reports sweats, Denies chills, Denies fever - EENT Eyes: denies blurred vision, denies pain Ears: deny: decreased hearing, tinnitus Ears, nose, mouth and throat: Denies headache, Denies sore throat - Breasts Breasts: bilateral: as per HPI - Cardiovascular Cardiovascular: Denies chest pain, Denies shortness of breath - Respiratory Respiratory: Denies cough - Gastrointestinal Gastrointestinal: Denies abdominal pain, Denies diarrhea, Denies nausea, Denies vomiting - Genitourinary (Female) Genitourinary: Denies dysuria, Denies hematuria - Menstruation Menstruation: Reports post hysterectomy - Musculoskeletal Musculoskeletal: Denies myalgias - Integumentary Integumentary: Denies pruritus, Denies rash - Neurological Neurological: Reports as per HPI, Denies numbness, Denies weakness - Psychiatric Psychiatric: Denies anxiety, Denies depression - Endocrine Endocrine: Denies fatigue, Denies weight change - Hematologic/Lymphatic Comment: none - Allergic/Immunologic Allergic/Immunologic: Reports seasonal allergies Past Medical History Past Medical History: Cancer, GERD/Reflux, Hypertension, Osteoarthritis (OA) Additional Past Medical History / Comment(s): Varicose veins, anemia, hx skin cancer History of Any Multi-Drug Resistant Organisms: None Reported Past Surgical History: Hysterectomy, Orthopedic Surgery, Tonsillectomy Additional Past Surgical History / Comment(s): Bilateral knee arthroscopy(left X1, right X2), torn tendons rt foot, heel spur rt foot, surgery for tubal , nasal surgery for fx nose. Right foot surgery 2019 Past Anesthesia/Blood Transfusion Reactions: No Reported Reaction Additional Past Anesthesia/Blood Transfusion Reaction / Comment(s): . Past Psychological History: No Psychological Hx Reported Smoking Status: Former smoker Past Alcohol Use History: Occasional Additional Past Alcohol Use History / Comment(s): Quit smoking 09/2018, smoked for 25 yrs on and off, "light smoker." Past Drug Use History: None Reported - Past Family History Father Family Medical History: Cancer Brother(s) Family Medical History: AFIB Medications and Allergies Home Medications Medication Instructions Recorded Confirmed Type Losartan Potassium [Cozaar] 100 mg PO DAILY 01/22/19 10/31/22 History Potassium 99 mg PO DAILY 07/19/19 10/31/22 History Cholecalciferol [Vitamin D3 (25 50 mcg PO DAILY 03/15/22 10/31/22 History Mcg = 1000 Iu)] Magnesium Oxide [Moon] 500 mg PO BID 03/15/22 10/31/22 History Ondansetron [Zofran ODT] 4 mg PO Q8HR #12 tab 03/15/22 10/31/22 Rx Vitamin B-12 Complex 1 tab PO DAILY 03/15/22 10/31/22 History Dexlansoprazole [Dexilant] 60 mg PO DAILY PRN 10/31/22 10/31/22 History Allergies Allergy/AdvReac Type Severity Reaction Status Date / Time bee venom protein (honey bee) Allergy Severe Swelling Verified 10/31/22 11:07 Objective - Vital Signs Vital signs: Vital Signs Temp 98.3 F 03/12/24 14:59 Pulse 65 03/12/24 14:59 Resp 17 03/12/24 14:59 BP 145/86 03/12/24 14:59 Pulse Ox 96 03/12/24 14:59 FiO2 Intake & Output 03/11/24 03/12/24 03/12/24 18:59 06:59 18:59 Weight 94.347 kg - Constitutional General appearance: Present: cooperative - EENT Eyes: Present: EOMI ENT: Present: hearing grossly normal - Neck Neck: Present: normal ROM - Respiratory Respiratory: bilateral: CTA - Cardiovascular Heart sounds: normal: S1, S2 - Integumentary Integumentary: Present: normal turgor - Musculoskeletal Musculoskeletal: Present: gait normal - Psychiatric Psychiatric: Present: A&O x's 3, appropriate affect, intact judgment & insight - Additional findings Additional findings: Breast Exam: BRA: 40DD Inspection: Postradiation surgical changes left breast, no evidence of infection Palpation: Right breast: Multi-positional exam fibrocystic changes no discrete dominant masses or nodules of concern Right axilla: No adenopathy of concern Left breast: multi-positional exam no dominant masses or nodules of concern, postradiation and surgical changes left breast, fullness upper medial and lateral quadrants of the breast Left axilla: No adenopathy of concern, incision clean and dry and well-healed Assessment and Plan Assessment: Impression: Patient status post left breast lumpectomy sentinel node biopsy for stage I invasive ductal carcinoma surgery performed 12-10-22 Patient status post radiation therapy Patient presently on letrazole Tender left nipple areolar complex resolved Plan: Patient had a bilateral mammogram 01-08-24 BIRAD 3 repeat left breast mammogram in 6 months Follow-up in 6 months for examination Continue to follow with medical and radiation oncology Bilateral mammogram in February 2025 with examination at that time as well Cc: Dr. Landers
== END ==
LOC: WWCWWP 14:33
PROVIDERS: ATTEND Surgery
DX: R92.8 Other abnormal and inconclusive findings on diagnostic imaging of breast (principal); C50.912 Malignant neoplasm of unspecified site of left female breast; L76.82 Other postprocedural complications of skin and subcutaneous tissue; N63.20 Unspecified lump in the left breast, unspecified quadrant; N64.4 Mastodynia; Z92.3 Personal history of irradiation; Z98.890 Other specified postprocedural states; Z48.817 Encounter for surgical aftercare following surgery on the skin and subcutaneous tissue; Z87.891 Personal history of nicotine dependence; Z17.0 Estrogen receptor positive status [ER+]; Z91.030 Bee allergy status